=== PATIENT | female | born 1980 | race Two or more races ===

== ENCOUNTER 2024-11-01 14:09 | Emergency (ER) | payer MEDICAID, SELFPAY ==
--- NOTE | 2024-11-01 14:41 | XR_ITS ---
Examination: Complete OB ultrasound, less than 14 weeks, transabdominal Date and time of exam: November 01, 2024 1503 hours INDICATIONS: No heart tones on at home on Doppler ultrasound assessment today Technique: Obstetrical ultrasound images less than 14 weeks performed via transabdominal imaging Findings: A normal shaped single intrauterine gestation is present in the uterus. pole 4.4 cm corresponds to 11 weeks 2 days gestational age Cardiac motion 164 BPM Ultrasonographic survey of visible and placental structures unremarkable. Amniotic fluid volume appears appropriate for this estimated gestational age. Right ovary 2.1 cm arterial flow Left ovary 2.6 cm arterial flow IMPRESSION: Viable intrauterine gestation 11 weeks 2 days.
--- NOTE | 2024-11-01 14:41 | PD.EDPREG ---
ED OB Contraction Preg RMI/HPI General Chief complaint: OB/Uterine Contractions Stated complaint: 11 weeks OB and no heart tones Time Seen by Provider: 11/01/24 14:43 Source: patient Arrival date/time: 11/01/24 14:09 43-year-old female with no known medical history presents to the emergency room with a chief complaint of vaginal spotting when she wipes, patient also states she has a Doppler at home and was unable to find any heart tones. Mode of arrival: ambulatory Limitations: no limitations Related Data Allergies Allergy/AdvReac Type Severity Reaction Status Date / Time No Known Allergies Allergy Verified 11/02/24 07:40 Review of Systems Review of Systems Systems Reviewed: All systems reviewed, normal except as documented Constitutional Constitutional: Reports system reviewed and no additional complaints, except as documented, Denies fatigue, Denies fever(s), Denies headache(s) and Denies weakness Eyes Eyes: Reports system reviewed and no additional complaints, except as documented, Denies blurry vision and Denies change in vision ENT Ears, Nose, Mouth, and Throat: Reports system reviewed and no additional complaints, except as documented, Denies otalgia, Denies headache(s), Denies nasal congestion, Denies throat swelling and Denies vertigo Cardiovascular Cardiovascular: Reports system reviewed and no additional complaints, except as documented, Denies chest pain, Denies dyspnea and Denies dyspnea on exertion Respiratory Respiratory: Reports system reviewed and no additional complaints, except as documented, Denies chest congestion, Denies cough, Denies dyspnea, Denies dyspnea on exertion and Denies wheezing Gastrointestinal Gastrointestinal: Reports system reviewed and no additional complaints, except as documented, Denies abdominal pain, Denies cramping, Denies nausea and Denies vomiting Genitourinary Genitourinary: Reports system reviewed and no additional complaints, except as documented, Reports abnormal vaginal bleeding and Reports pelvic pain Musculoskeletal Musculoskeletal: Reports system reviewed and no additional complaints, except as documented and Denies back pain Integumentary/Breasts Skin/Breast: Reports system reviewed and no additional complaints, except as documented and Denies wounds Neurologic Neurologic: Reports system reviewed and no additional complaints, except as documented, Denies confusion, Denies headache(s), Denies lack of coordination, Denies vertigo and Denies weakness Psychiatric Psychiatric: Reports system reviewed and no additional complaints, except as documented, Denies anxiety, Denies confusion, Denies depression, Denies paranoia, Denies suicidal ideation and Denies tactile hallucinations Endocrine Endocrine: Reports system reviewed and no additional complaints, except as documented and Denies fatigue Hematologic/Lymphatic Hematologic/Lymphatic: Reports system reviewed and no additional complaints, except as documented and Denies lymphadenopathy Allergic/Immunologic Allergic/Immunologic: Reports system reviewed and no additional complaints, except as documented, Denies throat swelling, Denies urticaria and Denies wheezing Past Medical History Past Medical History CARDIAC: Negative Congestive Heart Failure RESPIRATORY: Negative Chronic Obstructive Pulmonary Disease (COPD) GENITOURINARY: Negative Renal Disease ENDOCRINE: Negative Diabetes Mellitus Type 1 or Diabetes Mellitus Type 2 Social History SMOKING STATUS: Never smoker ED Exam General Limitations: Present no limitations General appearance: Present alert and in no apparent distress Head Head exam: Present atraumatic Eye Eye exam: Present normal appearance, PERRL and EOMI ENT ENT exam: Present normal exam, normal oropharynx and mucous membranes moist Neck Neck exam: Present normal inspection, full ROM and trachea midline Chest Chest inspection: Present normal inspection and symmetric chest wall rise Respiratory Respiratory exam: Present normal lung sounds bilaterally Cardiovascular Cardiovascular exam: Present regular rate, normal rhythm and normal heart sounds Abdominal Exam Abdominal exam: Present soft and normal bowel sounds; Absent distention, tenderness, guarding, rebound or rigidity Extremities Exam Extremities exam: Present normal inspection and full ROM Back Exam Back exam: Present normal inspection and full ROM Neurological Exam Neurological exam: Present alert, oriented X3 and CN II-XII intact Psychiatric Psychiatric exam: Present normal affect and normal mood Skin Skin exam: Present warm, dry, intact and normal color Course Quality Measures none Orders Category Date Time Status US OB <= 14 weeks fetus Stat Exams 11/01/24 14:41 Completed ABO/RH Type Stat Lab 11/01/24 14:58 Completed Beta HCG,Quantitative Stat Lab 11/01/24 14:58 Completed CBC Stat Lab 11/01/24 14:58 Completed CMP [Comprehensive Metabolic Panel] Stat Lab 11/01/24 14:58 Completed UA [Urinalysis] Stat Lab 11/01/24 15:30 Completed Vital Signs Vital signs: O2 saturations within normal limits OB/Uterine Contractions MDM Narrative MDM Narrative:: 43-year-old female with no known medical history presents to the emergency room with a chief complaint of vaginal spotting when she wipes, patient also states she has a Doppler at home and was unable to find any heart tones. Patient is hemodynamically stable and in no apparent distress. Blood pressure is within normal limits. Patient has a soft nontender abdomen patient denies vaginal bleeding, and states she only had 1 episode of vaginal spotting after she urinated and wiped. Ultrasound OB was completed and shows a viable at 11 weeks and 1 day. heart tones were at 153 bpm. hCG levels are at 142,426 Patient was discharged and educated to follow-up with [facility] and return to the emergency room for any evidence of worsening signs or symptoms Patient data External records reviewed:: [facility] previous records Clinical information provided by:: patient Social determinants that could affect healthcare access:: none Patient has the following chronic illnesses:: No chronic illness How is presenting disease/condition affected by chronic disease/condition?: no chronic disease Evaluation data The following diagnostics were reviewed and interpreted by me:: lab results and radiology exam(s) Lab and/or radiology exams considered but not ordered:: Labs and radiology exams considered and ordered Interpretation Summary: OB ultrasound-Findings: A normal shaped single intrauterine gestation is present in the uterus. CRL 4.3 cm corresponds to 11 weeks 1 day gestational age Cardiac motion 153 BPM Uterine body area of fibroid degeneration 3.7 cm Ultrasonographic survey of visible and placental structures unremarkable. Amniotic fluid volume appears appropriate for this estimated gestational age. Right ovary 2.3 cm arterial flow Left ovary 3.2 cm arterial flow Impression: Viable intrauterine gestation 11 weeks 1 day. Medications / Prescriptions Medications or Prescriptions considered but not ordered:: No medication given Medication administrations:: No medication given Consultations Consultation(s) initiated? (list below): No Diagnosis OB Contractions Differential Diagnosis: pre-eclampsia, eclampsia and other (Threatened /vaginal bleeding/ complications) Most likely diagnosis given after review of the tests above:: complications Admission Indicated Admission indicated?: not indicated Explain why admission is indicated or not indicated:: N/A Admission Request Was there a request for admission?: No Disposition Plan Disposition Plan: Discharge Discharge Attestation Discharge Attestation: The patient and all family members were given an opportunity to ask questions and understood the discharge instructions. Discharge instructions specifically effects, indications for sooner follow up or return to the emergency department, and the expected course of current diagnosis. Patient condition: Stable Discharge Plan Plan Patient Disposition: HOME (Self Care) Disposition Comment: Stable Problem List Clinical Impression: complication Patient/Caregiver Discharge Instructions Additional Instructions: David un seguimiento con oakes obstetra/ginec?logo en las pr?ximas 24 a 48 horas. Se complet? beatriz ecograf?a y hay tonos card?acos fetales. Tienes un embarazo viable de 11 semanas y 2 d?as. Ante cualquier evidencia de empeoramiento de los signos o s?ntomas, regrese a la adelaide de emergencias de inmediato. Print Language: Cambodian Stand Alone Forms: Wendi Award Info., Patient Portal Info Letter PA/LEAD NEURODIAGNOSTIC TECHNOLOGIST Supervising Physician PA/LEAD NEURODIAGNOST[employer] TECHNOLOGIST Supervising Physician: Dr Artis
[2024-11-01 15:11] LABS: Basophils % (Auto) 0 % (0-2.5); Eosinophils % (Auto) 0 % (0-10); Hematocrit 37.6 % (36.0-46.0); Immature Granulocytes % (Auto) 0 % (0-0); Immature Granulocytes Auto 0.03 Thou/mm3 (0.00-0.00); Lymphocytes # (Auto) 1.7 Thou/mm3 (1.0-4.8); Lymphocytes % (Auto) 22 % (10-50); Mean Corpuscular HGB Conc 34.6 g/dl (31.0-37.0); Mean Corpuscular Hemoglobin 29.1 pg (25.0-35.0); Mean Corpuscular Volume 84 fL (80-100); Monocytes # (Auto) 0.6 Thou/mm3 (0.0-0.8); Monocytes % (Auto) 8 % (0-12); Neutrophils # (Auto) 5.5 Thou/mm3 (1.8-7.7); Neutrophils % (Auto) 70 % (37-80); Nucleated Red Blood Cell % 0 /100 WBC (0); Platelet Count 203 Thou/mm3 (140-440); RDW Standard Deviation 41.6 fL (36.4-46.3); Red Blood Count 4.47 Miln/mm3 (4.00-5.20)
[2024-11-01 15:37] LABS: Alanine Aminotransferase 14 U/L (10-49); Albumin, Serum 3.8 gm/dL (3.5-5.0); Albumin/Globulin Ratio 1.3 (1.2-2.2); Alkaline Phosphatase 63 U/L (46-116); Anion Gap 5 (7-16); BUN/Creatinine Ratio 14 Ratio (12-20); Bilirubin,Total 0.3 mg/dL (0.3-1.2); Blood Urea Nitrogen 7 mg/dL (9-23); Calcium 9.3 mg/dL (8.3-10.6); Calcium (Corrected) 9.5 mg/dL (8.5-10.1); Carbon Dioxide 26.9 mMol/L (20.0-31.0); Chloride 107 mMol/L (98-107); Creatinine (Component) 0.5 mg/dL (0.6-1.3); Globulin 2.9 gm/dL (2.3-3.5); Glucose 86 mg/dL (74-106); Osmolality,Calculated 274 (275-295); Potassium 3.9 mMol/L (3.4-5.1); Sodium 139 mMol/L (136-145); Total Protein 6.7 gm/dL (5.7-8.2); eGFR > 60 See Note
[2024-11-01 15:41] LABS: Collection Type, Urine Clean Catch
[2024-11-01 15:49] LABS: Aspartate Amino Transferase 12 U/L (0-34)
[2024-11-01 16:09] LABS: Bilirubin,Urine Negative (Negative); Blood,Urine Trace (Negative); Clarity,Urine Clear (Clear/Hazy); Color,Urine Lt-Yellow (Lt Yel-Yel); Glucose, Urine Negative (Negative); Ketones,Urine Negative (Negative); Leukocyte Esterase,Urine Negative (Negative); Nitrite,Urine Positive (Negative); PH,Urine 6.5 (5.0-7.0); Protein,Urine Negative (Neg - Trace); RBC,Urine 3 /hpf (0-3); Specific Gravity,Urine 1.017 (1.001-1.035); Squamous Epithelial Cell,Urine 1 /hpf (0-5); Urobilinogen,Urine Negative mg/dL (0.0-1.0); WBC,Urine 2 /hpf (0-5)
[2024-11-01 16:54] LABS: Beta HCG,Quantitative 136342 mIU/mL (<5.0)
== END 2024-11-01 17:10 | disposition home or self-care (01) ==
PROVIDERS: Nurse Practitioner Family; Emergency Provider Emergency Medicine
DX: O26.91 Pregnancy related conditions, unspecified, first trimester (principal); Z3A.11 11 weeks gestation of pregnancy
CPT/HCPCS: 36415; 76801; 80053; 81001; 84702; 85025; 86900; 86901; 99284

== ENCOUNTER 2024-11-02 07:37 | Emergency (ER) | payer MEDICAID, SELFPAY ==
[2024-11-02 07:48] VITALS: BP 122/81; PULSE 62; RESP 16; TEMP 36.7; O2SAT 100; BMI 27.4
--- NOTE | 2024-11-02 08:05 | PD.EDRME ---
Rapid Medical Screening Exam E Arrival date/time: 11/02/24 07:37 This is a 43-year-old female that comes in with complaints of vaginal bleeding. Patient was just seen here couple days ago for the same reason. Patient is a 7 para 5. Patient previously had 1 miscarriage last year. Patient denies any past medical history. Patient denies any dysuria. Patient denies any abdominal pain. Patient is afraid that she is miscarrying. I have greeted and performed a focused initial assessment of this patient. Initial appropriate labs ordered at this time. A comprehensive ED assessment and evaluation of the patient and analysis of all test and completion of medical decision making process will be conducted by additional ED provider. Chief Complaint: Vaginal Bleeding Time Seen by Provider: 11/02/24 07:41 Vital signs: Vital Signs Temperature 98.0 F 11/02/24 07:48 Pulse Rate 62 11/02/24 07:48 Respiratory Rate 16 11/02/24 07:48 Blood Pressure 122/81 11/02/24 07:48 Pulse Oximetry (%) 100 11/02/24 07:48 Oxygen Delivery Method Room Air 11/02/24 07:48
--- NOTE | 2024-11-02 08:06 | XR_ITS ---
Examination: Complete OB ultrasound, less than 14 weeks, transabdominal Date and time of exam: November 02, 2024 0918 hrs. Indications: Vaginal bleeding beginning today Technique: Obstetrical ultrasound images less than 14 weeks performed via transabdominal imaging Findings: A normal shaped single intrauterine gestation is present in the uterus. CRL 4.3 cm corresponds to 11 weeks 1 day gestational age Cardiac motion 153 BPM Uterine body area of fibroid degeneration 3.7 cm Ultrasonographic survey of visible and placental structures unremarkable. Amniotic fluid volume appears appropriate for this estimated gestational age. Right ovary 2.3 cm arterial flow Left ovary 3.2 cm arterial flow Impression: Viable intrauterine gestation 11 weeks 1 day.
[2024-11-02 08:59] LABS: Collection Type, Urine Voided
[2024-11-02 08:59] LABS: Alanine Aminotransferase 11 U/L (10-49); Albumin, Serum 4.1 gm/dL (3.5-5.0); Albumin/Globulin Ratio 1.4 (1.2-2.2); Alkaline Phosphatase 63 U/L (46-116); Anion Gap 7 (7-16); Aspartate Amino Transferase < 10 U/L (0-34); BUN/Creatinine Ratio 14 Ratio (12-20); Bilirubin,Total 0.5 mg/dL (0.3-1.2); Blood Urea Nitrogen 7 mg/dL (9-23); Calcium 9.5 mg/dL (8.3-10.6); Calcium (Corrected) 9.5 mg/dL (8.5-10.1); Carbon Dioxide 27.4 mMol/L (20.0-31.0); Chloride 106 mMol/L (98-107); Creatinine (Component) 0.5 mg/dL (0.6-1.3); Estimated Creatinine Clearance 118.3 mL/min (>60); Glucose 94 mg/dL (74-106); Osmolality,Calculated 277 (275-295); Potassium 3.8 mMol/L (3.4-5.1); Sodium 140 mMol/L (136-145); Total Protein 7.1 gm/dL (5.7-8.2); eGFR > 60 See Note
[2024-11-02 09:02] LABS: Basophils % (Auto) 0 % (0-2.5); Eosinophils % (Auto) 0 % (0-10); Hematocrit 39.8 % (36.0-46.0); Hemoglobin 13.6 g/dL (12.0-16.0); Immature Granulocytes % (Auto) 0 % (0-0); Immature Granulocytes Auto 0.03 Thou/mm3 (0.00-0.00); Lymphocytes # (Auto) 1.6 Thou/mm3 (1.0-4.8); Lymphocytes % (Auto) 23 % (10-50); Mean Corpuscular HGB Conc 34.2 g/dl (31.0-37.0); Mean Corpuscular Hemoglobin 29.1 pg (25.0-35.0); Mean Corpuscular Volume 85 fL (80-100); Monocytes # (Auto) 0.5 Thou/mm3 (0.0-0.8); Monocytes % (Auto) 8 % (0-12); Neutrophils # (Auto) 4.6 Thou/mm3 (1.8-7.7); Neutrophils % (Auto) 68 % (37-80); Nucleated Red Blood Cell % 0 /100 WBC (0); Platelet Count 225 Thou/mm3 (140-440); RDW Standard Deviation 42.1 fL (36.4-46.3); Red Blood Count 4.68 Miln/mm3 (4.00-5.20); White Blood Count 6.7 Thou/mm3 (3.6-11.0)
[2024-11-02 09:47] LABS: Beta HCG,Quantitative 142460 mIU/mL (<5.0)
--- NOTE | 2024-11-02 10:21 | PRELIM_ITS ---
Obstetric ultrasound (transabdominal and transvaginal). November 02, 2024 0918 hours Clinical history: Vaginal bleeding. Technique: Real-time ultrasound was performed using Duplex scanning including arterial inflow, venous outflow, color and spectral Doppler analysis of both ovaries. Comparison: None. Findings: There is an intrauterine gestation with a single live fetus of mean gestational age 11 weeks and 1 day (CRL= 4.2 cm). cardiac activity is present at heart rate of 153 beats per minute. Estimated due date by ultrasound is 05/23/2025. Cervical length measures 6.6 cm The uterus measures 15.7 x 6.6 x 8.8 cm. There is a 3.7 x 2.8 x 3.2 cm hypoechoic structure in the anterior myometrium, which may represent a fibroid. Nabothian cyst is seen in the cervix. The right ovary measures 1.4 x 2.2 x 2.3 cm and is unremarkable. The left ovary measures 3.2 x 1.5 x 2.1 cm and is unremarkable. There is no free fluid in the pelvis. Impression: Intrauterine gestation with a single live fetus of mean gestational age 11 weeks and 1 day. Uterine fibroid as described. Recommend clinical correlation. Other findings as described above. Report Electronically Signed By: Dhara Bermudez 11/02/2024 10:21:18 AM [EST]
[2024-11-02 11:04] LABS: Bacteria,Urine Rare; Bilirubin,Urine Negative (Negative); Blood,Urine 1+ (Negative); Clarity,Urine Clear (Clear/Hazy); Color,Urine Lt-Yellow (Lt Yel-Yel); Culture Indicated,Urine Not Indicated; Glucose, Urine Negative (Negative); Ketones,Urine Negative (Negative); Leukocyte Esterase,Urine Negative (Negative); Nitrite,Urine Negative (Negative); PH,Urine 6.5 (5.0-7.0); Protein,Urine Negative (Neg - Trace); RBC,Urine 3 /hpf (0-3); Squamous Epithelial Cell,Urine 5 /hpf (0-5); Urobilinogen,Urine Negative mg/dL (0.0-1.0); WBC,Urine 1 /hpf (0-5)
--- NOTE | 2024-11-02 12:59 | PD.EDVAGBL ---
ED OB Contraction Preg RMI/HPI General Chief complaint: Vaginal Bleeding Stated complaint: 11 WKS VAGINAL BLEEDING Time Seen by Provider: 11/02/24 07:41 Arrival date/time: 11/02/24 07:37 This is a 43-year-old female that comes in with complaints of vaginal bleeding. Patient was just seen here couple days ago for the same reason. Patient is a 7 para 5. Patient previously had 1 miscarriage last year. Patient denies any past medical history. Patient denies any dysuria. Patient denies any abdominal pain. Patient is afraid that she is miscarrying. RME / HPI RME / HPI Narrative: 11/02/24 07:37 This is a 43-year-old female that comes in with complaints of vaginal bleeding. Patient was just seen here couple days ago for the same reason. Patient is a 7 para 5. Patient previously had 1 miscarriage last year. Patient denies any past medical history. Patient denies any dysuria. Patient denies any abdominal pain. Patient is afraid that she is miscarrying. I have greeted and performed a focused initial assessment of this patient. Initial appropriate labs ordered at this time. A comprehensive ED assessment and evaluation of the patient and analysis of all test and completion of medical decision making process will be conducted by additional ED provider. Related Data Allergies Allergy/AdvReac Type Severity Reaction Status Date / Time No Known Allergies Allergy Verified 11/02/24 07:40 Review of Systems Review of Systems Systems Reviewed: All systems reviewed, normal except as documented Past Medical History Past Medical History CARDIAC: Negative Congestive Heart Failure RESPIRATORY: Negative Chronic Obstructive Pulmonary Disease (COPD) GENITOURINARY: Negative Renal Disease ENDOCRINE: Negative Diabetes Mellitus Type 1 or Diabetes Mellitus Type 2 Social History SMOKING STATUS: Never smoker ED Exam General General appearance: Present alert and in no apparent distress Head Head exam: Present atraumatic Eye Eye exam: Present normal appearance, PERRL and EOMI ENT ENT exam: Present normal exam, normal oropharynx and mucous membranes moist Neck Neck exam: Present normal inspection, full ROM and trachea midline Chest Chest inspection: Present normal inspection and symmetric chest wall rise Respiratory Respiratory exam: Present normal lung sounds bilaterally Cardiovascular Cardiovascular exam: Present regular rate, normal rhythm and normal heart sounds Abdominal Exam Abdominal exam: Present soft Extremities Exam Extremities exam: Present normal inspection and full ROM Back Exam Back exam: Present normal inspection and full ROM Neurological Exam Neurological exam: Present alert, oriented X3 and CN II-XII intact Psychiatric Psychiatric exam: Present normal affect and normal mood Skin Skin exam: Present warm, dry, intact and normal color Course Quality Measures none Orders Category Date Time Status US OB <= 14 weeks fetus Stat Exams 11/02/24 08:06 Completed Beta HCG,Quantitative Stat Lab 11/02/24 08:15 Completed CBC Stat Lab 11/02/24 08:15 Completed Comprehensive Metabolic Panel Stat Lab 11/02/24 08:15 Completed Urinalysis, C/S if Indicated Stat Lab 11/02/24 08:45 Completed Vital Signs Vital signs: Vital Signs Temperature 98.0 F 11/02/24 07:48 Pulse Rate 62 11/02/24 07:48 Respiratory Rate 16 11/02/24 07:48 Blood Pressure 122/81 11/02/24 07:48 Pulse Oximetry (%) 100 11/02/24 07:48 Oxygen Delivery Method Room Air 11/02/24 07:48 Vaginal Bleeding MDM Narrative MDM Narrative: OB US Findings: A normal shaped single intrauterine gestation is present in the uterus. CRL 4.3 cm corresponds to 11 weeks 1 day gestational age Cardiac motion 153 BPM Uterine body area of fibroid degeneration 3.7 cm Ultrasonographic survey of visible and placental structures unremarkable. Amniotic fluid volume appears appropriate for this estimated gestational age. Right ovary 2.3 cm arterial flow Left ovary 3.2 cm arterial flow Impression: Viable intrauterine gestation 11 weeks 1 day. I went over results with patient. Yesterday's hCG showed a [id number] and today was [id number]. I explained to patient that I do not know why she is bleeding and she needs to follow-up with her primary provider in 1 to 2 days. Patient has a viable intrauterine of 11 weeks and 1 day per her read. Patient told to avoid sex or any heavy lifting. Patient told to rest follow-up with primary provider in 1 to 2 days. Patient data External records reviewed:: [facility] previous records Clinical information provided by:: patient Social determinants that could affect healthcare access:: none Patient has the following chronic illnesses:: none How is presenting disease/condition affected by chronic disease/condition?: no chronic disease Evaluation data The following diagnostics were reviewed and interpreted by me:: lab results and radiology exam(s) Lab and/or radiology exams considered but not ordered:: none Interpretation Summary: see note Medications / Prescriptions Medications or Prescriptions considered but not ordered:: none Medication administrations:: see note Consultations Consultation(s) initiated? (list below): No Diagnosis Vaginal Bleeding Differential Diagnosis: threatened , dysfunctional uterine bleeding, ectopic without intrauterine and vaginal bleeding Most likely diagnosis given after review of the tests above:: threatened miscarriage Admission Indicated Admission indicated?: not indicated Admission Request Was there a request for admission?: No Disposition Plan Disposition Plan: Discharge Discharge Attestation Discharge Attestation: The patient and all family members were given an opportunity to ask questions and understood the discharge instructions. Discharge instructions specifically effects, indications for sooner follow up or return to the emergency department, and the expected course of current diagnosis. Patient condition: Stable Discharge Plan Plan Patient Disposition: HOME (Self Care) Patient condition on transfer: Stable Prescriptions/Referrals Referrals: Crow Vasquez MD [Primary Care Provider] - In 1 week Problem List Clinical Impression: 11 weeks gestation of , Vaginal bleeding Patient/Caregiver Discharge Instructions Discharge Activity: activity as tolerated Education Materials: Understanding Uterine Bleeding, First Trimester Additional Instructions: Follow-up with primary provider in 1 to 2 days. Come back to the emergency room if symptoms change or worsen. Print Language: Singaporean Stand Alone Forms: Wendi Award Info., Patient Portal Info Letter LEANA/ESTELA Supervising Physician LEANA/ESTELA Supervising Physician: analilia
--- NOTE | 2024-11-02 13:53 | PC.NURSE ---
no answer x 1 at 1350. checked lobby and outside. notified provider.
--- NOTE | 2024-11-02 14:46 | PC.NURSE ---
no answer x 3 at 1430 and 1445. checked outside and lobby
== END 2024-11-02 14:48 | disposition home or self-care (01) ==
PROVIDERS: Nurse Practitioner Family; Emergency Provider Emergency Medicine; PCP Obstetrics & Gynecology
DX: O20.9 Hemorrhage in early pregnancy, unspecified (principal); O34.11 Maternal care for benign tumor of corpus uteri, first trimester; D25.9 Leiomyoma of uterus, unspecified; Z3A.11 11 weeks gestation of pregnancy
CPT/HCPCS: 36415; 76801; 80053; 81001; 84702; 85025; 99284

== ENCOUNTER → 2025-02-13 | Outpatient (CLI) | payer MEDICAID, SELFPAY ==
--- NOTE | 2025-02-13 13:30 | XR_ITS ---
Examination: Retroperitoneal ultrasound, complete Technique: Multiple high resolution grayscale images of the retroperitoneum obtained, including kidneys and bladder. Exam date and time:February 13, 2025 1413 hours INDICATIONS: Right flank pain beginning 2 weeks ago FINDINGS: Right kidney 11.0 cm cortex 1.6 cm Mild hydronephrosis Left kidney 11.0 cm cortex 1.8 cm Mild bilateral renal parenchymal scar formation No bladder mass or bladder calculi, bladder prevoid volume 262 cc postvoid volume 0 cc IMPRESSION: Mild right hydronephrosis
== END | disposition home or self-care (01) ==
LOC: CDIM 13:40
PROVIDERS: PCP Obstetrics & Gynecology; Referring Provider Obstetrics & Gynecology; Visit Provider Obstetrics & Gynecology
DX: N13.30 Unspecified hydronephrosis (principal)
CPT/HCPCS: 76770

== ENCOUNTER 2025-04-07 08:55 | Outpatient (AMB) | payer MEDICAID, SELFPAY ==
[2025-04-07 09:10] VITALS: BP 113/76; PULSE 71; RESP 17; TEMP 36.5; O2SAT 97; BMI 33.5
--- NOTE | 2025-04-07 09:10 | AMB.OBINITIA ---
Vital Signs 04/07/25 09:10 Height 1.5 m Height Method Stated Weight 75.41 kg Weight Measurement Method Standing Scale BMI 33.5 BP 113/76 Blood Pressure Source Automatic Cuff Blood Pressure Location Right Upper Arm Position Sitting Respiration 17 Pulse 71 Pulse Source Monitor Temp 97.7 F Temp Source Temporal Artery Scan Pulse Oximetry (%) 97 Oxygen Delivery Method Room Air Allergies/Home Meds Allergies & Medications Allergies No Known Allergies Allergy (Verified 04/07/25 09:13) Medication Reconciliation Unobtainable 04/07/25 [History Confirmed 04/07/25] Intake Visit Data Collection New Patient or Established: Established Patient (seen at [facility] within 3 years) 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 1. Little interest or pleasure in doing things: not at all 2. Feeling down, depressed, or hopeless: not at all Total score: 0 PHQ-9 3. Trouble falling or staying asleep, or sleeping too much: Not at all 4. Feeling tired or having little energy: Not at all 5. Poor appetite or overeating: Not at all 6. Feeling bad about yourself - or that you are a failure or have let yourself or your family down: Not at all 7. Trouble concentrating on things, such as reading the newspaper or watching television: Not at all 8. Moving or speaking so slowly that other people could have noticed? - Or the opposite - being so fidgety or restless that you have been moving around a lot more than usual: not at all 9. Thoughts that you would be better off or of hurting yourself in some way: Not at all Total score: 0 If you checked off any problems, how difficult have these problems made it for you to do your work, take care of things at home, or get along with other people?: not difficult at all Source: Developed by Drs. Troy Rivas, Mitzi Aguilera, Woo [place] and colleagues, with an educational ayesha from [employer]. Social History Living Situation History Marital Status: Lives With: Family Housing: House Tobacco History Smoking Status: Never smoker Second Hand Smoke Exposure: No Alcohol History Alcohol Intake: Never Domestic Abuse History Do You Feel Safe at Home: Yes History of Present Illness HPI Narrative 44-year-old 6 7 para 6 for OBI. Patient is a transfer from Dr. Holt's office at 33 weeks. Her last period July 19, 2024. This gives an EDC of May 23, 2025. Patient had a 9-week ultrasound that also confirm dates. She had an ultrasound March 17 that confirmed dates and put her at the 47 percentile. Denies social habits. Denies surgery. Denies chronic illness. Patient reports movement and denies leaking fluid. Patient is O+, antibody screen negative, RPR nonreactive, rubella immune, hepatitis B negative, HIV negative, hep C negative, patient is hep A positive but her IgM is negative. She had a negative AFP and negative NIPT. Carrier screens negative. Patient had an abnormal 1 hour GTT but her 3-hour normal. A1c was 5.0 REGULATORY INTERN: Past Medical History Past Medical History: No Hx Renal Disease, No Hx Diabetes Mellitus Type 1 and No Hx Diabetes Mellitus Type 2 OB Initial Visit OB Flowsheet OB Flowsheet Initial Weight: Not Recorded Date <del>?</del> EGA Weight BP Alb Glu CTX Pres Fundal ht FHR Mov Dilation Station Effacement Hx Notes Visit Note 04/07/25 <del>?</del> 33w 3d 75.41 kg 113/76 absent cephalic 33 147 active 44-year-old 7 para [address] Holt's office with records. Patient had a 9-week ultrasound. She has had no problems she reports with the . Denies social habits. Denies surgeries. Denies any existence of chronic illness. Reports good movement. Denies any cramps bleeding or leaking fluid Reviewed OB records with patient. GBS next visit. I called for her ultrasound records from [facility]. Patient has a follow-up in 6 weeks. Discussed labor precautions. Return in 2 weeks OB check Menstrual History Menstrual reliability: definite Flow: normal Menstrual regularity: regular Monthly: Yes OB History : 7 Para: 5 Hx Total # of Abortions (Spontaneous & Elective): 1 # of Living Children: 5 Delivery History 1st : Child's name: DEBORAH SEVILLA date: 06/27/04 sex: female Gestational age at delivery (weeks): 40 Delivery type: vaginal weight (lbs): 2721.554 g History of depression before or after : No 2nd : Child's name: KATH SEVILLA date: 03/25/06 sex: male Gestational age at delivery (weeks): 40 Delivery type: vaginal weight (lbs): 2267.962 g History of depression before or after : No 3rd : Child's name: JORJE PIEDRA date: 05/16/09 sex: male Gestational age at delivery (weeks): 40 Delivery type: vaginal weight (lbs): 3175.147 g History of depression before or after : No 4th : Child's name: JANET PIEDRA date: 04/14/12 sex: female Gestational age at delivery (weeks): 40 Delivery type: vaginal weight (lbs): 2721.554 g History of depression before or after : No 5th : Child's name: SEGUNDO SEVILLA date: 11/11/16 sex: female Gestational age at delivery (weeks): 40 Delivery type: vaginal weight (lbs): 2721.554 g History of depression before or after : No Infection History & Risk Evaluation History of STDs: none HIV risk evaluation: low risk Hepatitis B risk evaluation: low risk Patient or partner has history of Genital Herpes: No Varicella/chicken pox status: unknown Genetic Screening & History Genetic Screening/Teratology Counseling - Includes patient, baby's father, or anyone in either family with: 1. Patient's age 35 years or older as of estimated date of delivery: Yes 2. Thalassemia (Syrian, Chadian, Mediterranean, or Background); MCV less than 80: No 3. Neural Tube Defect (Meningomyelocele, Spina Bifida, or Anencephaly): No 4. Congenital Heart Defect: No 5. Down Syndrome: No 6. Aleksandar-Sachs (Ashkenazi Jehovah'S Witness, Cajun, [place]): No 7. Kaela Disease (Ashkenazi Jehovah'S Witness): No 8. Familial Dysautonomia (Ashkenazi Jehovah'S Witness): No 9. Sickle Cell Disease or Trait (): No 10. Hemophilia or other blood disorders: No 11. Muscular Dystrophy: No 12. Cystic Fibrosis: No 13. Jolene's Chorea: No 14. Mental Retardation/Autism: No 15. Other inherited genetic or chromosomal disorder: No 16. Maternal Metabolic Disorder (EG,TYPE 1 Diabetes, PKU): No 17. Patient or baby's father had a child with defects not listed above: No 18. Recurrent loss or a stillbirth: No 19. Medications (including supplements, vitamins, herbs or otc drugs)/illicit/recreational drugs/alcohol since last menstrual period: No 20. Any other: No Infection History 1. Live with someone with TB or exposed to TB: No 2. Rash or viral illness since last menstrual period: No 3. Hepatitis B,C: No Other (see comments) Source: [employer] Office Procedures OB Clinic LOC & Office Proc's Nursing/Assessment Patient Status: Established Patient OB Clinic Nursing Assessment: Medication Reconciliation, Update PMH in EMR and Vital Signs OB Clinic Coordination of Care: Complex Care and Chronic Disease 1-5, Consent,records obtained, informed consent, Education Simp Pt/Fam, 2-3 Insurance Autorizations needed, Lab and Imaging orders, Results/Orders obtained and Staff clarify orders Special Needs: Heart tones Established Patient Charge Established Patient Point Assignment: 155 Established Patient Point Charge: EP Level 4 (120-155) Assessment & Plan Diagnosis / Problem List (1) Encounter for supervision of high risk in third trimester, antepartum: Status: Acute (2) Advanced maternal age (AMA) in : Status: Acute (3) Grand multiparity with current : Status: Acute Plan review records. call for MFM report. GBS NV, discuss OTL precaution, fkc bid, hydrate. rtc 2 week obc Additional Plan Follow Up: 2 Weeks (obc)
== END 2025-04-07 09:42 | disposition home or self-care (01) ==
LOC: HODSOBC 08:55
PROVIDERS: Supervising Provider Advanced Practice Midwife; Visit Provider Advanced Practice Midwife
DX: O09.523 Supervision of elderly multigravida, third trimester (principal); O09.43 Supervision of pregnancy with grand multiparity, third trimester; Z3A.33 33 weeks gestation of pregnancy
CPT/HCPCS: 99214; G0463

== ENCOUNTER 2025-04-21 08:36 | Outpatient (AMB) | payer MEDICAID, SELFPAY ==
--- NOTE | 2025-04-21 08:39 | OBCLNT_ITS ---
Vital Signs 04/21/25 08:40 Height 1.5 m Height Method Stated Weight 76.657 kg Weight Measurement Method Standing Scale BMI 34.0 BP 117/76 Blood Pressure Source Automatic Cuff Blood Pressure Location Right Upper Arm Position Sitting Respiration 17 Pulse 83 Pulse Source Monitor Temp 97.5 F Temp Source Temporal Artery Scan Pulse Oximetry (%) 95 Oxygen Delivery Method Room Air Allergies/Home Meds Allergies & Medications Allergies No Known Allergies Allergy (Verified 04/21/25 08:40) Medication Reconciliation vits no.126-ferrous fum 28 mg iron-folic acid 800 mcg tablet (Classic ) 0.126 - 28 tab PO DAILY 30 days #60 tabs 04/07/25 [Rx Confirmed 04/21/25] amoxicillin 500 mg capsule 500 mg PO BID #14 caps 04/21/25 [Rx] Intake Visit Data Collection New Patient or Established: Established Patient (seen at [facility] within 3 years) Reason for Visit:: OBC 35W3D Seen by Clinical Staff ONLY (RN/MA): No Microsoft Windows 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 1. Little interest or pleasure in doing things: not at all 2. Feeling down, depressed, or hopeless: not at all Total score: 0 PHQ-9 3. Trouble falling or staying asleep, or sleeping too much: Not at all 4. Feeling tired or having little energy: Not at all 5. Poor appetite or overeating: Not at all 6. Feeling bad about yourself - or that you are a failure or have let yourself or your family down: Not at all 7. Trouble concentrating on things, such as reading the newspaper or watching television: Not at all 8. Moving or speaking so slowly that other people could have noticed? - Or the opposite - being so fidgety or restless that you have been moving around a lot more than usual: not at all 9. Thoughts that you would be better off or of hurting yourself in some way: Not at all Total score: 0 If you checked off any problems, how difficult have these problems made it for you to do your work, take care of things at home, or get along with other people?: not difficult at all Source: Developed by Drs. Troy Rivas, Mitzi Aguilera, Woo [place] and colleagues, with an educational ayesha from [employer]. 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 Holt's office with records. Patient had a 9-week ultrasound. She has had no problems she reports with the . Denies social habits. Denies surgeries. Denies any existence of chronic illness. Reports good movement. Denies any cramps bleeding or leaking fluid Reviewed OB records with patient. GBS next visit. I called for her ultrasound records from [facility]. Patient has a follow-up in 6 weeks. Discussed labor precautions. Return in 2 weeks OB check 04/21/25 -?-?-?-?-?-?-?-?-?-?-?-?- 35w 3d 76.657 kg 117/76 absent cephalic 35 145 active increased pressure, f etus active, no leaking or bleeding. mfm 04/29 increased pressure, fetus ac tive, no leaking or bleeding. mfm 04/29. UTI. sore throat x 4 days GBS today, tamara nue fkc bid. keep mfm appt 04/29. discuss labor precauution and danger s/s. rtc 1 week GBS today, continue fkc bid. keep mfm appt 04/29. discuss labor precauution and danger s/s. rtc 1 week. Amoxicillin 500 bid x7 to [place] [facility] GERMÁN Calculator Estimated Delivery Date Method Current WG Current Estimate 05/23/25 LMP (Certain) 35w 3d Other Estimates 05/24/25 Ultrasound #1 35w 2d 05/23/25 Ultrasound #2 35w 3d Notes Visit Date: 04/07/25 Last Updated by: María Sanders, ENRRIQUE 43 yo IUP 33 wk. LMP 08/16/25. EDC 05/24/25. 1st sono: 10/25/24: 9w6; EDC 05/24/25. O+,abs-, rpr;;nr, rub imm, hbsag-, hiv-, GC/CT-, UT-,UA-, hbsab-, hiv-, HC-, REID+/IGM-. 1 hr gtt: 154. 3 hr gtt: normal. A1: 5.0, NIPT/AFP and carrier screen- sono 03/17: efw: 47% Office Procedures OB Clinic LOC & Office Proc's Nursing/Assessment Patient Status: Established Patient OB Clinic Nursing Assessment: Medication Reconciliation, Update PMH in EMR and Vital Signs OB Clinic Coordination of Care: Complex Care and Chronic Disease 1-5, Consent,records obtained, informed consent, Education Simp Pt/Fam, Lab and Imaging orders and Staff clarify orders Special Needs: Heart tones Established Patient Charge Established Patient Point Assignment: 130 Established Patient Point Charge: EP Level 4 (120-155) Assessment & Plan Diagnosis / Problem List (1) Grand multiparity with current : Status: Acute (2) Advanced maternal age (AMA) in : Status: Acute Plan discuss labor precaution, GBS today, fkc BID, discuss danger s/s and ER precaution. rtc 1 week obc Additional Plan Follow Up: 1 Week (obc)
[2025-04-21 08:40] VITALS: BP 117/76; PULSE 83; RESP 17; TEMP 36.4; O2SAT 95; BMI 34.0
== END 2025-04-21 09:18 | disposition home or self-care (01) ==
LOC: HODSOBC 08:36
PROVIDERS: Supervising Provider Advanced Practice Midwife; Visit Provider Advanced Practice Midwife
DX: O09.893 Supervision of other high risk pregnancies, third trimester (principal); O09.43 Supervision of pregnancy with grand multiparity, third trimester; O09.523 Supervision of elderly multigravida, third trimester; O23.43 Unspecified infection of urinary tract in pregnancy, third trimester; Z36.85 Encounter for antenatal screening for Streptococcus B; Z3A.35 35 weeks gestation of pregnancy
CPT/HCPCS: 99214; G0463

== ENCOUNTER 2025-04-28 10:09 | Outpatient (AMB) | payer MEDICAID, SELFPAY ==
[2025-04-28 10:38] VITALS: BP 114/74; PULSE 73; RESP 17; TEMP 36.3; O2SAT 97; BMI 33.8
--- NOTE | 2025-04-28 10:38 | OBCLNT_ITS ---
Vital Signs 04/28/25 10:38 Height 1.5 m Height Method Measured Weight 76.204 kg Weight Measurement Method Standing Scale BMI 33.8 BP 114/74 Blood Pressure Source Automatic Cuff Blood Pressure Location Right Upper Arm Position Sitting Respiration 17 Pulse 73 Pulse Source Monitor Temp 97.4 F Temp Source Temporal Artery Scan Pulse Oximetry (%) 97 Oxygen Delivery Method Room Air Allergies/Home Meds Allergies & Medications Allergies No Known Allergies Allergy (Verified 04/28/25 10:39) Medication Reconciliation vits no.126-ferrous fum 28 mg iron-folic acid 800 mcg tablet (Classic ) 0.126 - 28 tab PO DAILY 30 days #60 tabs 04/07/25 [Rx Confirmed 04/28/25] amoxicillin 500 mg capsule 500 mg PO BID #14 caps 04/21/25 [Rx Confirmed 04/28/25] Intake Visit Data Collection New Patient or Established: Established Patient (seen at [facility] within 3 years) Reason for Visit:: OBC Consent obtained for Telemed Visit: No Seen by Clinical Staff ONLY (RN/MA): No Infantry Unit Leader Required: No Do You Feel Safe at Home: Yes Authorities Contacted: N/A PCP or OBGYN visit in last 3 months: Yes Date of Last PCP or OBGYN visit: 04/21/25 Hx Now: Yes Are you currently on any form of Control: No Pain Present Currently: Yes Pain scale:: 6 Smoking Status Smoking Status: Never smoker Questionnaires Covid-19 Vaccine Questionnaire Has patient been vacinated for Covid-19 Have you been vacinated for Covid-19: No PHQ-9 PHQ-2 Over the last 2 weeks, how often have you been bothered by any of the following problems? 1. Little interest or pleasure in doing things: not at all PHQ-9 3. Trouble falling or staying asleep, or sleeping too much: Not at all 4. Feeling tired or having little energy: Not at all 5. Poor appetite or overeating: Not at all 6. Feeling bad about yourself - or that you are a failure or have let yourself or your family down: Not at all 7. Trouble concentrating on things, such as reading the newspaper or watching television: Not at all 8. Moving or speaking so slowly that other people could have noticed? - Or the opposite - being so fidgety or restless that you have been moving around a lot more than usual: not at all 9. Thoughts that you would be better off or of hurting yourself in some way: Not at all If you checked off any problems, how difficult have these problems made it for you to do your work, take care of things at home, or get along with other people?: not difficult at all Source: Developed by Drs. Troy Rivas, Mitzi Aguilera, Woo [place] and colleagues, with an educational ayesha from [employer]. 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 Holt's office with records. Patient had a 9-week ultrasound. She has had no problems she reports with the . Denies social habits. Denies surgeries. Denies any existence of chronic illness. Reports good movement. Denies any cramps bleeding or leaking fluid Reviewed OB records with patient. GBS next visit. I called for her ultrasound records from [place] [facility]. Patient has a follow-up in 6 weeks. Discussed labor precautions. Return in 2 weeks OB check 04/21/25 -?-?-?-?-?-?-?-?-?-?-?-?- 35w 3d 76.657 kg 117/76 absent cephalic 35 145 active increased pressure, fetus active, no leaking or bleeding. mfm 8 increased pressure, fetus ac tive, no leaking or bleeding. mfm 8/. UTI. sore throat x 4 days GBS today, tamara nue fkc bid. keep mfm appt 04/29. discuss labor precauution and danger s/s. rtc 1 week GBS today, continue fkc bid. keep mfm appt 04/29. discuss labor precauution and danger s/s. rtc 1 week. Amoxicillin 500 bid x7 to [facility] 04/28/25 -?-?-?-?-?-?-?-?-?-?-?-?- 36w 3d 76.204 kg 114/74 absent cephalic 36 145 active Increased pressure. No OB complaints. Leaking no leaking fluid. Denies bleeding. Denies contract ions. Reports good movement. Patient has MFM appointment on the Keep MFM appointment. Discussed labor precautions. Discussed kick counts twice a day. And ER precautions. Return in a week for recheck. [facility] GERMÁN Calculator Estimated Delivery Date Method Current WG Current Estimate 05/23/25 LMP (Certain) 36w 3d Other Estimates 05/24/25 Ultrasound #1 36w 2d 05/23/25 Ultrasound #2 36w 3d Notes Visit Date: 04/28/25 Last Updated by: María Sanders CNM GBS- Visit Date: 04/07/25 Last Updated by: María Sanders CNM 43 yo IUP 33 wk. LMP 08/16/25. EDC 05/24/25. 1st sono: 10/25/24: 9w6; EDC 05/24/25. O+,abs-, rpr;;nr, rub imm, hbsag-, hiv-, GC/CT-, UT-,UA-, hbsab-, hiv-, HC-, REID+/IGM-. 1 hr gtt: 154. 3 hr gtt: normal. A1: 5.0, NIPT/AFP and carrier screen- sono 03/17: efw: 47% Office Procedures OB Clinic LOC & Office Proc's Nursing/Assessment Patient Status: Established Patient OB Clinic Nursing Assessment: Medication Reconciliation, Update PMH in EMR and Vital Signs OB Clinic Coordination of Care: Complex Care and Chronic Disease 1-5, Consent,records obtained, informed consent, Education Simp Pt/Fam and Results/Orders obtained Special Needs: Heart tones Established Patient Charge Established Patient Point Assignment: 110 Established Patient Point Charge: EP Level 3 (80-115) Assessment & Plan Diagnosis / Problem List (1) Grand multiparity with current : Status: Acute (2) Encounter for supervision of high risk in third trimester, antepartum: Status: Acute Plan Discussed labor precautions. Kick counts twice a day. Discussed ER precautions. To keep appointment with maternal- medicine on the . Return a week OB check Additional Plan Follow Up: 1 Week (obc)
== END 2025-04-28 11:24 | disposition home or self-care (01) ==
LOC: HODSOBC 10:09
PROVIDERS: Supervising Provider Advanced Practice Midwife; Visit Provider Advanced Practice Midwife
DX: O09.523 Supervision of elderly multigravida, third trimester (principal); O09.43 Supervision of pregnancy with grand multiparity, third trimester; Z3A.36 36 weeks gestation of pregnancy
CPT/HCPCS: 99213; G0463

== ENCOUNTER 2025-05-07 08:55 | Outpatient (AMB) | payer MEDICAID, SELFPAY ==
[2025-05-07 09:02] VITALS: BP 136/81; PULSE 73; RESP 16; TEMP 36.6; O2SAT 98; BMI 34.4
--- NOTE | 2025-05-07 09:02 | AMB.OBVISIT ---
Vital Signs 05/07/25 09:02 Height 1.5 m Height Method Stated Weight 77.621 kg Weight Measurement Method Standing Scale BMI 34.4 BP 136/81 H Blood Pressure Source Automatic Cuff Blood Pressure Location Left Upper Arm Position Sitting Respiration 16 Pulse 73 Pulse Source Monitor Temp 97.9 F Temp Source Oral Pulse Oximetry (%) 98 Oxygen Delivery Method Room Air Allergies/Home Meds Allergies & Medications Allergies No Known Allergies Allergy (Verified 05/07/25 09:03) Medication Reconciliation vits no.126-ferrous fum 28 mg iron-folic acid 800 mcg tablet (Classic ) 0.126 - 28 tab PO DAILY 30 days #60 tabs 04/07/25 [Rx Confirmed 04/28/25] Intake Visit Data Collection New Patient or Established: Established Patient (seen at [facility] within 3 years) Reason for Visit:: CARE Seen by Clinical Staff ONLY (RN/MA): No Quill Skinner Required: No Do You Feel Safe at Home: Yes Authorities Contacted: N/A PCP or OBGYN visit in last 3 months: Yes Hx Now: Yes Are you currently on any form of Control: No Pain Present Currently: No Pain Scale Used: Monsivais-Dumont/Numerical Pain scale:: 0 Smoking Status Smoking Status: Never smoker Questionnaires Covid-19 Vaccine Questionnaire Has patient been vacinated for Covid-19 Have you been vacinated for Covid-19: Yes PHQ-9 PHQ-2 Over the last 2 weeks, how often have you been bothered by any of the following problems? 1. Little interest or pleasure in doing things: not at all 2. Feeling down, depressed, or hopeless: not at all Total score: 0 PHQ-9 3. Trouble falling or staying asleep, or sleeping too much: Not at all 4. Feeling tired or having little energy: Not at all 5. Poor appetite or overeating: Not at all 6. Feeling bad about yourself - or that you are a failure or have let yourself or your family down: Not at all 7. Trouble concentrating on things, such as reading the newspaper or watching television: Not at all 8. Moving or speaking so slowly that other people could have noticed? - Or the opposite - being so fidgety or restless that you have been moving around a lot more than usual: not at all 9. Thoughts that you would be better off or of hurting yourself in some way: Not at all Total score: 0 Source: Developed by Drs. Troy Rivas, Mitzi Aguilera, Woo [place] and colleagues, with an educational ayesha from [email or web address]. 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 Holt's office with records. Patient had a 9-week ultrasound. She has had no problems she reports with the . Denies social habits. Denies surgeries. Denies any existence of chronic illness. Reports good movement. Denies any cramps bleeding or leaking fluid Reviewed OB records with patient. GBS next visit. I called for her ultrasound records from [facility]. Patient has a follow-up in 6 weeks. Discussed labor precautions. Return in 2 weeks OB check 04/21/25 <del>?</del> 35w 3d 76.657 kg 117/76 absent cephalic 35 145 active increased pressure, fetus active, no leaking or bleeding. mfm 8 increased pressure, fetus active, no leaking or bleeding. mfm 8. UTI. sore throat x 4 days GBS today, continue fkc bid. keep mfm appt 04/29. discuss labor precauution and danger s/s. rtc 1 week GBS today, continue fkc bid. keep mfm appt 04/29. discuss labor precauution and danger s/s. rtc 1 week. [place] [facility] [place] <del>?</del> 36w 3d 76.204 kg 114/74 absent cephalic 36 145 active Increased pressure. No OB complaints. Leaking no leaking fluid. Denies bleeding. Denies contractions. Reports good movement. Patient has MFM appointment on the 12th Keep MFM appointment. Discussed labor precautions. Discussed kick counts twice a day. And ER precautions. Return in a week for recheck. Hydrate 05/07/25 <del>?</del> 37w 5d 77.621 kg 136/81 occasional cephalic 37 145 active deneis PIH complaints, increase uc,No VB, No LOF, fetus active NST/comp OB and PIH w/u today, urine- protein. sched IOL 05/23/25. discuss labor precaution, fkc bid GERMÁN Calculator Estimated Delivery Date Method Current WG Current Estimate 05/23/25 LMP (Certain) 37w 5d Other Estimates 05/24/25 Ultrasound #1 37w 4d 05/23/25 Ultrasound #2 37w 5d Notes Visit Date: 05/07/25 Last Updated by: María Sanders CNM 44 yo lmp 08/16/24. edc: 05/23/25. 1st sono: 10wk1 on 10/25/24. EDC: 05/24/25. panel, 1 hr gtt high/3 hr gtt wnl, O+,abs-, rpr;;nr, rub imm, hbsag-,hiv- HC-. gc/ct-, A1c: 5.0, REID+/IGM-, afp,nipt,carrier screen-.GBS- Visit Date: 04/28/25 Last Updated by: María Sanders CNM GBS- Visit Date: 04/07/25 Last Updated by: María Sanders CNM 43 yo IUP 33 wk. LMP 08/16/25. EDC 05/24/25. 1st sono: 10/25/24: 9w6; EDC 05/24/25. O+,abs-, rpr;;nr, rub imm, hbsag-, hiv-, GC/CT-, UT-,UA-, hbsab-, hiv-, HC-, REID+/IGM-. 1 hr gtt: 154. 3 hr gtt: normal. A1: 5.0, NIPT/AFP and carrier screen- sono 03/17: efw: 47% Office Procedures OB Clinic LOC & Office Proc's Nursing/Assessment Patient Status: Established Patient OB Clinic Nursing Assessment: Medication Reconciliation, Update PMH in EMR and Vital Signs OB Clinic Coordination of Care: AMA, Complex Care and Chronic Disease 1-5, Consent,records obtained, informed consent, Education Simp Pt/Fam, Lab and Imaging orders, Results/Orders obtained and Staff clarify orders Special Needs: Heart tones Established Patient Charge Established Patient Point Assignment: 155 Established Patient Point Charge: EP Level 4 (120-155) Assessment & Plan Diagnosis / Problem List (1) Encounter for supervision of high risk in third trimester, antepartum: Status: Acute Plan To labor and delivery today for NST, BPP, PIH workup. Schedule induction of labor May 23, 2025 for AMA. Discussed labor precautions, kick counts, danger signs, ER precautions. Return week OB check Additional Plan Follow Up: 1 Week (OBC)
== END 2025-05-07 09:33 | disposition home or self-care (01) ==
LOC: HODSOBC 08:55
PROVIDERS: Supervising Provider Advanced Practice Midwife; Visit Provider Advanced Practice Midwife
DX: O09.523 Supervision of elderly multigravida, third trimester (principal); O09.43 Supervision of pregnancy with grand multiparity, third trimester; Z3A.37 37 weeks gestation of pregnancy
CPT/HCPCS: 99214; G0463

== ENCOUNTER 2025-05-07 10:56 | Outpatient (CLI) | payer MEDICAID, SELFPAY ==
[2025-05-07 11:02] VITALS: BP 117/74; PULSE 79
[2025-05-07 11:04] VITALS: BP 117/74; PULSE 79; RESP 17; RESP 98; TEMP 37
--- NOTE | 2025-05-07 11:22 | XR_ITS ---
Examination: Complete OB ultrasound greater than 14 weeks Date and time of exam: May 07, 2025 1209 hours INDICATIONS: -induced hypertension in the doctor's office today Findings: Viable intrauterine single fetus with single amniotic sac presentation cephalic Cardiac motion 140 BPM Placenta left lateral grade 2 Umbilical cord insertion 3 vessel seen Amniotic fluid index 12.0 cm spine maternal right Cervix 3.6 cm Ovaries obscured by bowel gas. Composite estimated gestational age based on BPD, head circumference, abdominal circumference, femur length is 35 weeks 3 days Estimated weight 3789 g. Survey of intracranial anatomy, spinal anatomy, abdominal anatomy, four-chamber heart performed with no abnormalities identified. Impression: Viable intrauterine gestation cephalic presentation.
[2025-05-07 11:32] VITALS: BP 105/60; PULSE 80
[2025-05-07 11:59] VITALS: BMI 34.9
[2025-05-07 11:59] LABS: Basophils # (Auto) 0.0 Thou/mm3 (0.0-0.2); Basophils % (Auto) 0 % (0-2.5); Eosinophils # (Auto) 0.1 Thou/mm3 (0.0-0.5); Eosinophils % (Auto) 1 % (0-10); Hematocrit 38.8 % (36.0-46.0); Hemoglobin 13.6 g/dL (12.0-16.0); Immature Granulocytes Auto 0.06 Thou/mm3 (0.00-0.00); Lymphocytes # (Auto) 1.6 Thou/mm3 (1.0-4.8); Lymphocytes % (Auto) 18 % (10-50); Mean Corpuscular HGB Conc 35.1 g/dl (31.0-37.0); Mean Corpuscular Hemoglobin 30.4 pg (25.0-35.0); Mean Corpuscular Volume 87 fL (80-100); Monocytes # (Auto) 0.6 Thou/mm3 (0.0-0.8); Monocytes % (Auto) 7 % (0-12); Neutrophils # (Auto) 6.2 Thou/mm3 (1.8-7.7); Neutrophils % (Auto) 73 % (37-80); Nucleated Red Blood Cell # 0.00 Thou/mm3 (0.00-0.00); Nucleated Red Blood Cell % 0 /100 WBC (0); Platelet Count 157 Thou/mm3 (140-440); RDW Standard Deviation 41.3 fL (36.4-46.3); Red Blood Count 4.48 Miln/mm3 (4.00-5.20); White Blood Count 8.5 Thou/mm3 (3.6-11.0)
[2025-05-07 12:12] LABS: Fibrinogen 419 mg/dL (175-375); INR 0.9 (0.9-1.3); Partial Thromboplastin Time 25.6 Seconds (22.0-36.0); Prothrombin Time 10.4 Seconds (9.0-12.2)
[2025-05-07 12:32] LABS: Collection Type, Urine Clean Catch
[2025-05-07 12:36] LABS: Bacteria,Urine 1+; Bilirubin,Urine Negative (Negative); Blood,Urine Negative (Negative); Clarity,Urine Turbid (Clear/Hazy); Color,Urine Lt-Yellow (Lt Yel-Yel); Glucose, Urine Negative (Negative); Ketones,Urine Negative (Negative); Leukocyte Esterase,Urine Positive (Negative); Nitrite,Urine Positive (Negative); PH,Urine 5.5 (5.0-7.0); Protein,Urine Negative (Neg - Trace); RBC,Urine 1 /hpf (0-3); Specific Gravity,Urine 1.011 (1.001-1.035); Squamous Epithelial Cell,Urine 12 /hpf (0-5); Urobilinogen,Urine Negative mg/dL (0.0-1.0); WBC,Urine 21 /hpf (0-5)
[2025-05-07 12:45] LABS: Alanine Aminotransferase 16 U/L (10-49); Albumin, Serum 3.4 gm/dL (3.5-5.0); Albumin/Globulin Ratio 1.5 (1.2-2.2); Alkaline Phosphatase 159 U/L (46-116); Anion Gap 12 (7-16); Aspartate Amino Transferase 20 U/L (0-34); BUN/Creatinine Ratio 15 Ratio (12-20); Bilirubin,Total 0.6 mg/dL (0.3-1.2); Blood Urea Nitrogen 6 mg/dL (9-23); Calcium 9.2 mg/dL (8.3-10.6); Calcium (Corrected) 9.7 mg/dL (8.5-10.1); Carbon Dioxide 20.9 mMol/L (20.0-31.0); Chloride 106 mMol/L (98-107); Creatinine (Component) 0.4 mg/dL (0.6-1.3); Estimated Creatinine Clearance 165.8 mL/min (>60); Globulin 2.2 gm/dL (2.3-3.5); Glucose 124 mg/dL (74-106); LDH (Lactate Dehydrogenase) 155 U/L (120-246); Osmolality,Calculated 276 (275-295); Potassium 3.5 mMol/L (3.4-5.1); Sodium 139 mMol/L (136-145); Total Protein 5.6 gm/dL (5.7-8.2); Uric Acid 7.0 mg/dL (3.1-7.8); eGFR > 60 See Note
[2025-05-07 12:53] VITALS: BP 109/70; PULSE 73
[2025-05-07 13:23] VITALS: BP 103/57; PULSE 77
[2025-05-07 13:53] VITALS: BP 97/60; PULSE 77
== END 2025-05-07 14:05 | disposition home or self-care (01) ==
LOC: S4S1 10:58 → S4SX 10:59
PROVIDERS: Referring Provider Advanced Practice Midwife; Visit Provider Advanced Practice Midwife
DX: O26.893 Other specified pregnancy related conditions, third trimester (principal); Z3A.35 35 weeks gestation of pregnancy; R03.0 Elevated blood-pressure reading, without diagnosis of hypertension
CPT/HCPCS: 36415; 59025; 76805; 80053; 81001; 83615; 84550; 85025; 85384; 85610; 85730

== ENCOUNTER 2025-05-14 13:10 | Outpatient (AMB) | payer MEDICAID, SELFPAY ==
[2025-05-14 13:17] VITALS: BP 137/84; PULSE 88; RESP 16; TEMP 36.2; O2SAT 97
--- NOTE | 2025-05-14 13:17 | AMB.OBVISIT ---
Vital Signs 05/14/25 13:17 Weight 77.621 kg Weight Measurement Method Standing Scale BP 137/84 H Blood Pressure Source Automatic Cuff Blood Pressure Location Left Upper Arm Position Sitting Respiration 16 Pulse 88 Pulse Source Monitor Temp 97.2 F Temp Source Oral Pulse Oximetry (%) 97 Oxygen Delivery Method Room Air Allergies/Home Meds Allergies & Medications Allergies No Known Allergies Allergy (Verified 05/14/25 13:19) Medication Reconciliation vits no.126-ferrous fum 28 mg iron-folic acid 800 mcg tablet (Classic ) 0.126 - 28 tab PO DAILY 30 days #60 tabs 05/14/25 [Rx] Intake Visit Data Collection New Patient or Established: Established Patient (seen at [facility] within 3 years) Reason for Visit:: OBC/ NEEDS REFILLS ON PRENATALS Seen by Clinical Staff ONLY (RN/MA): No Tool Technician Required: No Do You Feel Safe at Home: Yes Authorities Contacted: N/A PCP or OBGYN visit in last 3 months: Yes Hx Now: Yes Are you currently on any form of Control: No Pain Present Currently: No Pain Scale Used: Monsivais-Dumont/Numerical Pain scale:: 0 Smoking Status Smoking Status: Never smoker Questionnaires Covid-19 Vaccine Questionnaire Has patient been vacinated for Covid-19 Have you been vacinated for Covid-19: Yes PHQ-9 PHQ-2 Over the last 2 weeks, how often have you been bothered by any of the following problems? 1. Little interest or pleasure in doing things: not at all 2. Feeling down, depressed, or hopeless: not at all Total score: 0 PHQ-9 3. Trouble falling or staying asleep, or sleeping too much: Not at all 4. Feeling tired or having little energy: Not at all 5. Poor appetite or overeating: Not at all 6. Feeling bad about yourself - or that you are a failure or have let yourself or your family down: Not at all 7. Trouble concentrating on things, such as reading the newspaper or watching television: Not at all 8. Moving or speaking so slowly that other people could have noticed? - Or the opposite - being so fidgety or restless that you have been moving around a lot more than usual: not at all 9. Thoughts that you would be better off or of hurting yourself in some way: Not at all Total score: 0 If you checked off any problems, how difficult have these problems made it for you to do your work, take care of things at home, or get along with other people?: not difficult at all Source: Developed by Drs. Troy Rivas, Mitzi Aguilera, Woo [place] and colleagues, with an educational ayesha from [employer] 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 Holt's office with records. Patient had a 9-week ultrasound. She has had no problems she reports with the . Denies social habits. Denies surgeries. Denies any existence of chronic illness. Reports good movement. Denies any cramps bleeding or leaking fluid Reviewed OB records with patient. GBS next visit. I called for her ultrasound records from [facility]. Patient has a follow-up in 6 weeks. Discussed labor precautions. Return in 2 weeks OB check 04/21/25 <del>?</del> 35w 3d 76.657 kg 117/76 absent cephalic 35 145 active increased pressure, fetus active, no leaking or bleeding. mfm 04/29 increased pressure, fetus active, no leaking or bleeding. mfm 04/29. UTI. sore throat x 4 days GBS today, continue fkc bid. keep mfm appt 04/29. discuss labor precauution and danger s/s. rtc 1 week GBS today, continue fkc bid. keep mfm appt 8/12. discuss labor precauution and danger s/s. rtc 1 week. [place] [facility] [place] <del>?</del> 36w 3d 76.204 kg 114/74 absent cephalic 36 145 active Increased pressure. No OB complaints. Leaking no leaking fluid. Denies bleeding. Denies contractions. Reports good movement. Patient has MFM appointment on the Keep MFM appointment. Discussed labor precautions. Discussed kick counts twice a day. And ER precautions. Return in a week for recheck. Hydrate 05/07/25 <del>?</del> 37w 5d 77.621 kg 136/81 occasional cephalic 37 145 active deneis PIH complaints, increase uc,No VB, No LOF, fetus active NST/comp OB and PIH w/u today, urine- protein. sched IOL 05/23/25. discuss labor precaution, fkc bid 05/14/25 <del>?</del> 38w 5d 77.621 kg 137/84 occasional cephalic 38 140 active Denies PIH complaints today. Denies bleeding, denies leaking fluid. Occasional contraction and pressure. Reports good movement. Patient compliant with weekly NST BPP NST BPP today. Kick counts twice a day. Discussed labor precautions. Discussed ER precautions with parameters and signs symptoms of PIH. Refill prenatals. Increase fluids. Return a week OB check NST BPP today. Kick counts twice a day. Discussed labor precautions. Discussed ER precautions with parameters and signs symptoms of PIH. Refill prenatals. Increase fluids. Return a week OB check. IOL 05/23 GERMÁN Calculator Estimated Delivery Date Method Current WG Current Estimate 05/23/25 LMP (Certain) 38w 5d Other Estimates 05/24/25 Ultrasound #1 38w 4d 05/23/25 Ultrasound #2 38w 5d Notes Visit Date: 05/07/25 Last Updated by: María Sanders, RAMONE 44 yo lmp 08/16/24. edc: 05/23/25. 1st sono: 10wk1 on 10/25/24. EDC: 05/24/25. panel, 1 hr gtt high/3 hr gtt wnl, O+,abs-, rpr;;nr, rub imm, hbsag-,hiv- HC-. gc/ct-, A1c: 5.0, REID+/IGM-, afp,nipt,carrier screen-.GBS- Visit Date: 04/28/25 Last Updated by: María Sanders CNM GBS- Visit Date: 04/07/25 Last Updated by: María Sanders CNM 43 yo IUP 33 wk. LMP 08/16/25. EDC 05/24/25. 1st sono: 10/25/24: 9w6; EDC 05/24/25. O+,abs-, rpr;;nr, rub imm, hbsag-, hiv-, GC/CT-, UT-,UA-, hbsab-, hiv-, HC-, REID+/IGM-. 1 hr gtt: 154. 3 hr gtt: normal. A1: 5.0, NIPT/AFP and carrier screen- sono 03/17: efw: 47% Office Procedures OB Clinic LOC & Office Proc's Nursing/Assessment Patient Status: Established Patient OB Clinic Nursing Assessment: Medication Reconciliation, Update PMH in EMR and Vital Signs OB Clinic Coordination of Care: Consent,records obtained, informed consent, Lab and Imaging orders, Results/Orders obtained and Staff clarify orders Special Needs: Heart tones Established Patient Charge Established Patient Point Assignment: 95 Established Patient Point Charge: EP Level 3 (80-115) Assessment & Plan Diagnosis / Problem List (1) Encounter for supervision of high risk in third trimester, antepartum: Status: Acute (2) Advanced maternal age (AMA) in : Status: Acute (3) Grand multiparity with current : Status: Acute Plan Refill prenatals. Increase fluids. Discussed labor precautions. Discussed PIH signs and symptoms and ER precautions. Continue with weekly NST BPP. Induction of labor for May 23. Return a week OB check Additional Plan Follow Up: 1 Week (obc)
== END 2025-05-14 13:34 | disposition home or self-care (01) ==
LOC: HODSOBC 13:10
PROVIDERS: Supervising Provider Advanced Practice Midwife; Visit Provider Advanced Practice Midwife
DX: O09.523 Supervision of elderly multigravida, third trimester (principal); O09.43 Supervision of pregnancy with grand multiparity, third trimester; Z3A.38 38 weeks gestation of pregnancy
CPT/HCPCS: 99213; G0463

== ENCOUNTER 2025-05-14 13:51 | Outpatient (CLI) | payer MEDICAID, SELFPAY ==
[2025-05-14 13:51] VITALS: BP 120/73; PULSE 95; RESP 17; RESP 98; TEMP 36.8; BMI 35.5
[2025-05-14 14:01] VITALS: BP 120/73; PULSE 85
[2025-05-14 14:03] VITALS: PULSE 84; O2SAT 97
[2025-05-14 14:08] VITALS: PULSE 78; O2SAT 97
[2025-05-14 14:13] VITALS: PULSE 80; O2SAT 97
[2025-05-14 14:18] VITALS: PULSE 79; O2SAT 97
--- NOTE | 2025-05-14 14:27 | XR_ITS ---
Examination: Biophysical profile, ultrasound Date and time of exam: May 14, 2025 1428 hrs. Indications: Diagnosis advanced maternal age, diagnosis induced hypertension. Technique: Multiple transabdominal sonographic images of the pelvis abdomen obtained. Attention is directed to the breathing movement, gross body movement, amniotic fluid volume and tone. Findings: Amniotic fluid index 9.9 cm Total biophysical profile is 8 of 8. breathing movement is 2. Gross body movement is 2. tone is 2. Qualitative amniotic fluid volume is 2 Impression: Biophysical profile is 8 of 8.
== END 2025-05-14 14:55 | disposition home or self-care (01) ==
LOC: S4S1 13:52 → S4SX 13:53
PROVIDERS: Referring Provider Obstetrics & Gynecology; Visit Provider Advanced Practice Midwife
DX: O16.3 Unspecified maternal hypertension, third trimester (principal); O09.523 Supervision of elderly multigravida, third trimester; Z3A.38 38 weeks gestation of pregnancy
CPT/HCPCS: 59025; 76819

== ENCOUNTER 2025-05-18 11:59 | Outpatient (CLI) | payer MEDICAID, SELFPAY ==
[2025-05-18] VITALS (17 sets, daily range): BP systolic 117–121; BP diastolic 70–72; PULSE 75–96; RESP 16–95; TEMP 36.8; O2SAT 93–97; BMI 34.3
== END 2025-05-18 13:13 | disposition home or self-care (01) ==
LOC: S4S1 12:00 → S4SX 12:13
PROVIDERS: Referring Provider Specialist; Visit Provider Specialist
DX: Z34.83 Encounter for supervision of other normal pregnancy, third trimester (principal); Z36.9 Encounter for antenatal screening, unspecified; Z3A.39 39 weeks gestation of pregnancy
CPT/HCPCS: 59025

== ENCOUNTER 2025-05-21 13:47 | Outpatient (AMB) | payer MEDICAID, SELFPAY ==
[2025-05-21 13:59] VITALS: BP 137/84; PULSE 76; RESP 16; TEMP 36.2; O2SAT 98
--- NOTE | 2025-05-21 13:59 | OBCLNT_ITS ---
Vital Signs 05/21/25 13:59 Weight 78.471 kg Weight Measurement Method Standing Scale BP 137/84 H Blood Pressure Source Automatic Cuff Blood Pressure Location Left Upper Arm Position Sitting Respiration 16 Pulse 76 Pulse Source Monitor Temp 97.2 F Temp Source Oral Pulse Oximetry (%) 98 Oxygen Delivery Method Room Air Allergies/Home Meds Allergies & Medications Allergies No Known Allergies Allergy (Verified 05/21/25 14:00) Medication Reconciliation vits no.126-ferrous fum 28 mg iron-folic acid 800 mcg tablet (Classic ) 0.126 - 28 tab PO DAILY 30 days #60 tabs 05/14/25 [Rx Confirmed 05/21/25] Intake Visit Data Collection New Patient or Established: Established Patient (seen at [facility] within 3 years) Reason for Visit:: OBC Seen by Clinical Staff ONLY (RN/MA): No Fence Machine Operator Required: No Do You Feel Safe at Home: Yes Authorities Contacted: N/A PCP or OBGYN visit in last 3 months: Yes Date of Last PCP or OBGYN visit: 05/18/25 Hx Now: Yes Are you currently on any form of Control: No Pain Present Currently: No Pain Scale Used: Monsivais-Dumont/Numerical Pain scale:: 0 Smoking Status Smoking Status: Never smoker Questionnaires Covid-19 Vaccine Questionnaire Has patient been vacinated for Covid-19 Have you been vacinated for Covid-19: No PHQ-9 PHQ-2 Over the last 2 weeks, how often have you been bothered by any of the following problems? 1. Little interest or pleasure in doing things: not at all 2. Feeling down, depressed, or hopeless: not at all Total score: 0 PHQ-9 3. Trouble falling or staying asleep, or sleeping too much: Not at all 4. Feeling tired or having little energy: Not at all 5. Poor appetite or overeating: Not at all 6. Feeling bad about yourself - or that you are a failure or have let yourself or your family down: Not at all 7. Trouble concentrating on things, such as reading the newspaper or watching television: Not at all 8. Moving or speaking so slowly that other people could have noticed? - Or the opposite - being so fidgety or restless that you have been moving around a lot more than usual: not at all 9. Thoughts that you would be better off or of hurting yourself in some way: Not at all Total score: 0 If you checked off any problems, how difficult have these problems made it for you to do your work, take care of things at home, or get along with other people?: not difficult at all Source: Developed by Drs. Troy Rivas, Mitzi Aguilera, [place]oo [place] and colleagues, with an educational ayesha from [employer]. 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 Holt's office with records. Patient had a 9-week ultrasound. She has had no problems she reports with the . Denies social habits. Denies surgeries. Denies any existence of chronic illness. Reports good movement. Denies any cramps bleeding or leaking fluid Reviewed OB records with patient. GBS next visit. I called for her ultrasound records from [facility]. Patient has a follow-up in 6 weeks. Discussed labor precautions. Return in 2 weeks OB check 04/21/25 -?--?-?-?-?-?-?-?-?-?-?-?- 35w 3d 76.657 kg 117/76 absent cephalic 35 145 active increased pressure, fetus active, no leaking or bleeding. mfm 8/ increased pressure, fetus ac tive, no leaking or bleeding. mfm 8/12. UTI. sore throat x 4 days GBS today, tamara nue fkc bid. keep mfm appt 04/29. discuss labor precauution and danger s/s. rtc 1 week GBS today, continue fkc bid. keep mfm appt 04/29. discuss labor precauution and danger s/s. rtc 1 week. Amoxicillin 500 bid x7 to [facility] [place] 04/28/25 -?-?-?-?-?-?-?-?-?-?-?-?- 36w 3d 76.204 kg 114/74 absent cephalic 36 145 active Increased pressure. No OB complaints. Leaking no leaking fluid. Denies bleeding. Denies contractions. Reports good movement. Patient has MFM appointment on the Keep MFM appoint ment. Discussed labor precautions. Discussed kick counts twice a day. And ER precautions. Return in a week for recheck. Hydrate 05/07/25 -?-?-?-?-?-?-?-?-?-?-?-?- 37w 5d 77.621 kg 136/81 occasional cephalic 37 145 active deneis PIH complaints, increase uc,No VB, No LOF, fetus active NST/comp OB and PIH w/u today, urine- protein. sched IOL 05/23/25. discuss labor precaution, fkc bid 05/14/25 -?-?-?-?-?-?-?-?-?-?-?-?- 38w 5d 77.621 kg 137/84 occasional cephalic 38 140 active Denies PIH complaints today. Denies bleeding, denies leaking fluid. Occasional contraction and pressure. Reports good movement. Patient compliant with weekly NST BPP NST BPP today. Kick counts twice a day. Discussed labor precautions. Discussed ER precautions with parameters and signs symptoms of P IH. Refill prenatals. Increase fluids. Return a week OB check NST BPP today. Kick counts twice a day. Discussed labor precautions. Discussed ER precautions with parameters and signs symptoms of PIH. Refill prenatals. Increase fluids. Return a week OB check. IOL 05/2305/21/25 -?-?-?-?-?-?-?-?-?-?-?-?- 39w 5d 78.471 kg 137/84 occasional cephalic 38 145 active 1 -3 50 Denies PIH complaints. No headache. Reports movement. Denies bleeding or leaking. Occasional contraction and pressure To labor and delivery today for PIH workup and blood pressure monitoring. Patient is for induction May 23. Reviewed labor precautions kick counts twice a day. Discussed danger signs symptoms and ER precautions. I discussed PIH precautions. Patient will come in a week for OB check if needed To labor and delivery today for PIH workup and blood pressure monitoring. Patient is for induction May 23. Reviewed labor precautions kick counts twice a day. Discussed danger signs symptoms and ER precautions. I discussed PIH precautions. Patient will come in a week for OB check if needed. PIH labs, NST and BP are all normal today. MAJOR normal GERMÁN Calculator Estimated Delivery Date Method Current WG Current Estimate 05/23/25 LMP (Certain) 39w 5d Other Estimates 05/24/25 Ultrasound #1 39w 4d 05/23/25 Ultrasound #2 39w 5d Notes Visit Date: 05/07/25 Last Updated by: María Sanders CNM 44 yo lmp 08/16/24. edc: 05/23/25. 1st sono: 10wk1 on 10/25/24. EDC: 05/24/25. panel, 1 hr gtt high/3 hr gtt wnl, O+,abs-, rpr;;nr, rub imm, hbsag-,hiv- HC-. gc/ct-, A1c: 5.0, REID+/IGM-, afp,nipt,carrier screen-.GBS- Visit Date: 04/28/25 Last Updated by: María Sanders CNM GBS- Visit Date: 04/07/25 Last Updated by: María Sanders CNM 43 yo IUP 33 wk. LMP 08/16/25. EDC 05/24/25. 1st sono: 10/25/24: 9w6; EDC 05/24/25. O+,abs-, rpr;;nr, rub imm, hbsag-, hiv-, GC/CT-, UT-,UA-, hbsab-, hiv-, HC-, REID+/IGM-. 1 hr gtt: 154. 3 hr gtt: normal. A1: 5.0, NIPT/AFP and carrier screen- sono 03/17: efw: 47% Office Procedures OB Clinic LOC & Office Proc's Nursing/Assessment Patient Status: Established Patient OB Clinic Nursing Assessment: Medication Reconciliation, Update PMH in EMR and Vital Signs OB Clinic Coordination of Care: Education Complex Pt/Fam, Consent,records obtained, informed consent, Lab and Imaging orders and Staff clarify orders Special Needs: Heart tones Established Patient Charge Established Patient Point Assignment: 110 Established Patient Point Charge: EP Level 3 (80-115) Assessment & Plan Diagnosis / Problem List (1) Grand multiparity with current : Status: Acute (2) Advanced maternal age (AMA) in : Status: Acute (3) Encounter for supervision of high risk in third trimester, antepartum: Status: Acute Plan To labor and delivery for PIH evjuarez, BELENT BPP. Discussed kick count. Discussed PIH signs and symptoms with patient. She has induction of labor scheduled for May 23 because of AMA. Discussed labor precautions. Increase fluids and return in a week if undelivered for recheck Additional Plan Follow Up: 1 Week (obc)
== END 2025-05-21 14:21 | disposition home or self-care (01) ==
LOC: HODSOBC 13:47
PROVIDERS: Supervising Provider Advanced Practice Midwife; Visit Provider Advanced Practice Midwife
DX: O09.523 Supervision of elderly multigravida, third trimester (principal); O09.43 Supervision of pregnancy with grand multiparity, third trimester; Z3A.39 39 weeks gestation of pregnancy
CPT/HCPCS: 99213; G0463

== ENCOUNTER 2025-05-21 14:44 | Outpatient (CLI) | payer MEDICAID, SELFPAY ==
[2025-05-21] VITALS (19 sets, daily range): BP systolic 105–124; BP diastolic 61–73; PULSE 66–79; RESP 16–98; TEMP 36.7; O2SAT 96–99; BMI 34.8
--- NOTE | 2025-05-21 14:56 | XR_ITS ---
Examination: Biophysical profile, ultrasound Date and time of exam: May 21, 2025 1509 hours INDICATIONS: -induced hypertension today Technique: Multiple transabdominal sonographic images of the pelvis abdomen obtained. Attention is directed to the breathing movement, gross body movement, amniotic fluid volume and tone. Findings: Amniotic fluid index 12.5 cm Total biophysical profile is 8 of 8. breathing movement is 2. Gross body movement is 2. tone is 2. Qualitative amniotic fluid volume is 2 Impression: Biophysical profile is 8 of 8.
[2025-05-21 15:32] LABS: Collection Type, Urine Clean Catch
[2025-05-21 15:38] LABS: Basophils # (Auto) 0.0 Thou/mm3 (0.0-0.2); Basophils % (Auto) 0 % (0-2.5); Eosinophils # (Auto) 0.0 Thou/mm3 (0.0-0.5); Eosinophils % (Auto) 1 % (0-10); Hematocrit 38.4 % (36.0-46.0); Hemoglobin 13.2 g/dL (12.0-16.0); Immature Granulocytes Auto 0.07 Thou/mm3 (0.00-0.00); Lymphocytes # (Auto) 1.5 Thou/mm3 (1.0-4.8); Lymphocytes % (Auto) 17 % (10-50); Mean Corpuscular HGB Conc 34.4 g/dl (31.0-37.0); Mean Corpuscular Hemoglobin 29.6 pg (25.0-35.0); Mean Corpuscular Volume 86 fL (80-100); Monocytes # (Auto) 0.7 Thou/mm3 (0.0-0.8); Monocytes % (Auto) 8 % (0-12); Neutrophils # (Auto) 6.4 Thou/mm3 (1.8-7.7); Neutrophils % (Auto) 74 % (37-80); Nucleated Red Blood Cell # 0.00 Thou/mm3 (0.00-0.00); Nucleated Red Blood Cell % 0 /100 WBC (0); Platelet Count 170 Thou/mm3 (140-440); RDW Standard Deviation 41.1 fL (36.4-46.3); Red Blood Count 4.46 Miln/mm3 (4.00-5.20); White Blood Count 8.7 Thou/mm3 (3.6-11.0)
[2025-05-21 15:50] LABS: Creatinine,Random Urine 80 mg/dL (30-125); Protein Total, Random Urine 15 mg/dL (1-14)
[2025-05-21 16:09] LABS: Alanine Aminotransferase 15 U/L (10-49); Albumin, Serum 3.6 gm/dL (3.5-5.0); Albumin/Globulin Ratio 1.5 (1.2-2.2); Alkaline Phosphatase 201 U/L (46-116); Anion Gap 11 (7-16); Aspartate Amino Transferase 17 U/L (0-34); BUN/Creatinine Ratio 16 Ratio (12-20); Bilirubin,Total 0.5 mg/dL (0.3-1.2); Blood Urea Nitrogen 8 mg/dL (9-23); Calcium 9.9 mg/dL (8.3-10.6); Calcium (Corrected) 10.2 mg/dL (8.5-10.1); Carbon Dioxide 22.1 mMol/L (20.0-31.0); Chloride 106 mMol/L (98-107); Creatinine (Component) 0.5 mg/dL (0.6-1.3); Estimated Creatinine Clearance 132.4 mL/min (>60); Globulin 2.4 gm/dL (2.3-3.5); Glucose 88 mg/dL (74-106); LDH (Lactate Dehydrogenase) 151 U/L (120-246); Osmolality,Calculated 274 (275-295); Potassium 3.7 mMol/L (3.4-5.1); Sodium 139 mMol/L (136-145); Total Protein 6.0 gm/dL (5.7-8.2); eGFR > 60 See Note
[2025-05-21 16:11] LABS: Bacteria,Urine 1+; Bilirubin,Urine Negative (Negative); Blood,Urine Negative (Negative); Color,Urine Yellow (Lt Yel-Yel); Glucose, Urine Negative (Negative); Ketones,Urine Negative (Negative); Leukocyte Esterase,Urine Positive (Negative); Nitrite,Urine Positive (Negative); PH,Urine 6.0 (5.0-7.0); Protein,Urine Negative (Neg - Trace); RBC,Urine 5 /hpf (0-3); Specific Gravity,Urine 1.020 (1.001-1.035); Squamous Epithelial Cell,Urine 2 /hpf (0-5); Urobilinogen,Urine Negative mg/dL (0.0-1.0); WBC,Urine 56 /hpf (0-5)
[2025-05-21 16:17] LABS: Uric Acid 6.4 mg/dL (3.1-7.8)
[2025-05-21 16:22] LABS: Clarity,Urine Hazy (Clear/Hazy)
[2025-05-21 16:29] LABS: Fibrinogen 477 mg/dL (175-375); INR 0.9 (0.9-1.3); Partial Thromboplastin Time 25.5 Seconds (22.0-36.0); Prothrombin Time 10.2 Seconds (9.0-12.2)
== END 2025-05-21 16:35 | disposition home or self-care (01) ==
LOC: S4S1 14:46 → S4SX 14:47
PROVIDERS: Referring Provider Obstetrics & Gynecology; Visit Provider Advanced Practice Midwife
DX: O26.899 Other specified pregnancy related conditions, unspecified trimester (principal); R03.0 Elevated blood-pressure reading, without diagnosis of hypertension; Z3A.00 Weeks of gestation of pregnancy not specified
CPT/HCPCS: 36415; 59025; 76819; 80053; 81001; 82570; 83615; 84156; 84550; 85025; 85384; 85610; 85730

== ENCOUNTER 2025-05-22 14:20 | Inpatient (IN) | payer MEDICAID, SELFPAY ==
[2025-05-22] VITALS (61 sets, daily range): BP systolic 106–146; BP diastolic 59–87; PULSE 63–92; RESP 16–98; TEMP 36.6–36.9; O2SAT 94–100; BMI 34.7; BMI 34.9
--- NOTE | 2025-05-22 15:59 | XR_ITS ---
Examination: age Limited Technique: Limited transabdominal sonographic images pelvis Date and time: May 22, 2025, 1607 hrs. Indications: Preop labor induction today, unknown presentation. Findings: Viable intrauterine gestation cephalic presentation. spine maternal right. Cardiac motion 143 BPM. Impression: Viable intrauterine gestation cephalic presentation
[2025-05-22 16:30] LABS: Basophils # (Auto) 0.0 Thou/mm3 (0.0-0.2); Basophils % (Auto) 0 % (0-2.5); Eosinophils # (Auto) 0.0 Thou/mm3 (0.0-0.5); Eosinophils % (Auto) 1 % (0-10); Hematocrit 39.3 % (36.0-46.0); Hemoglobin 13.7 g/dL (12.0-16.0); Immature Granulocytes Auto 0.05 Thou/mm3 (0.00-0.00); Lymphocytes # (Auto) 1.5 Thou/mm3 (1.0-4.8); Lymphocytes % (Auto) 18 % (10-50); Mean Corpuscular HGB Conc 34.9 g/dl (31.0-37.0); Mean Corpuscular Hemoglobin 29.7 pg (25.0-35.0); Mean Corpuscular Volume 85 fL (80-100); Monocytes # (Auto) 0.7 Thou/mm3 (0.0-0.8); Monocytes % (Auto) 8 % (0-12); Neutrophils # (Auto) 6.2 Thou/mm3 (1.8-7.7); Neutrophils % (Auto) 73 % (37-80); Nucleated Red Blood Cell # 0.00 Thou/mm3 (0.00-0.00); Nucleated Red Blood Cell % 0 /100 WBC (0); Platelet Count 163 Thou/mm3 (140-440); RDW Standard Deviation 41.1 fL (36.4-46.3); Red Blood Count 4.62 Miln/mm3 (4.00-5.20); White Blood Count 8.4 Thou/mm3 (3.6-11.0)
[2025-05-22 17:08] LABS: Syphilis Nonreactive (Nonreactive)
--- NOTE | 2025-05-22 19:29 | PD.LDHP ---
Documentation for date of: 05/22/25 OB Labor/Induct. HPI History of Present Illness Chief complaint: left vulvar lesion with pain/swelling : 7 Para: 5 Term pregnancies: 5 pregnancies: 0 Living children: 5 History of Abortions: Spontaneous and Elective: 1 History of Vaginal deliveries: 5 History of sections: No History of : No Date of last menstrual period: 08/16/24 GERMÁN: 05/23/25 Gestational Age (weeks): 39 Gestational Age (days): 6 Gestational age based on last menstrual period: 39 History of present illness: Leidy presents to triage for concern of left vulvar lesion. She notes having cervical exam in office yesterday and today feels a lesion on the vulva. She wonders if it could be from latex allergy. On further review, Dr. Vasquez diagnosed her with HSV last January after she sat on a hot tractor and then had a lesion on her vulva. She was prescribed acyclovir and then later acyclovir cream when she had what she believed was an ingrown hair, but worried it might be another HSV lesion. She was not started on valtrex or acyclovir at 36 weeks, because she did not mention it to her OB provider when she transferred care in 3rd trimester. She notes neither she nor her have oral HSV and has never had a genital lesion. She was scheduled for IOL tomorrow for AMA (age 44). History of Present Dating criteria: LMP confirmed by 1st trimester US Adequate Care: Yes Narrative: Hx of 5 uncomplicated Current complicated by: -AMA (age 44) -Grandmultiparity -Genital HSV -Current BMI 34.9 Labs Maternal Blood Type: O Pos Labs: Positive: Rubella Titre and Negative: RPR, Hepatitis B, HIV, Chlamydia, Gonorrhea and Group Beta Strep Narrative: Per chart: 1 hr glucola 152/3 hr gtt wnl, A1c: 5.0, Hepatitis A IgG positive/IgM negative AFP, NIPT and carrier screen negative Review of Systems Review of Systems Narrative Review of Systems: Review of Systems Systems Reviewed: All systems reviewed, normal except as documented Constitutional Constitutional: Denies body ache(s), Denies chills, Denies fever(s) and Denies headache(s) ENT Ears, Nose, Mouth, and Throat: Denies headache(s) and Denies vertigo Cardiovascular Cardiovascular: Denies chest pain, Denies palpitations, Denies dyspnea and Denies syncope Respiratory Respiratory: Denies cough, Denies dyspnea Gastrointestinal Gastrointestinal: Denies nausea and Denies vomiting Neurologic Neurologic: Denies convulsions, Denies headache(s), Denies other visual disturbances, Denies syncope and Denies vertigo Past Medical History Family History OTHER FAMILY HX: non-contributory Surgical History SURGICAL: Negative Section OTHER SURGICAL HX: appendectomy Social History SOCIAL: . 5 children. No ETOH/illicit drug use or tobacco use Past Medical History Comments PMH COMMENT: Genital HSV Current BMI 34.9 Hx of depression Meds Home Medications and Allergies Allergies Allergy/AdvReac Type Severity Reaction Status Date / Time No Known Allergies Allergy Verified 05/22/25 16:29 OB Exam Physical Exam Vital signs: Temp Pulse Resp BP Pulse Ox 97.8 F 79 17 133/80 H 95 05/22/25 18:22 05/22/25 19:26 05/22/25 18:22 05/22/25 19:26 05/22/25 19:29 Narrative: General: well developed, well nourished, no acute distress, conversant Cardiac: normal heart rate Lungs: breathing without distress Abdomen: soft, gravid, non-tender, no rebound or guarding Extremities: no pain with palpation of calves Genital exam (with RN and CNM Marilyn): on the left vulva there is a definite cluster of vesicular lesions with a weeping sheen over them Detailed Labor and Delivery Exam Membranes: intact monitor accelerations: 15x15 monitor decelerations: None shelter variability: Moderate (11-25) OB Results Labs 05/22/25 16:00 Labs: Short CBC 05/22/25 Range/Units 16:00 WBC 8.4 (3.6-11.0) Thou/mm3 Hgb 13.7 (12.0-16.0) g/dL Hct 39.3 (36.0-46.0) % Plt Count 163 (140-440) Thou/mm3 OB Assessment & Plan Assessment and Plan (1) Genital herpes simplex virus (HSV) infection in mother affecting : Status: Acute Assessment and plan: Leidy is a 44yo with SIUP at 39&6wk with active left vulvar HSV outbreak at term. Vitals wnl. Reassuring assessment. PMhx/ complicated by: Genital HSV AMA, age 44 Grandmultiparity Current BMI 34.9 Care with RAMONE Sanders Plan: -Admit to L&D -Establish IV, routine labs -NPO (She last ate at 1300 today) -I discussed with patient my recommendation for delivery to avoid complications of HSV that could be fatal or cause permanent disability. She voiced her understanding and desire to proceed with . -Counseled/consented re: section (with RN as signal tower director). Discussed all r/b/a to include: bleeding (possible need for blood transfusion), infection (subcutaneous, deeper layers or uterine with possible need for prolonged admission or re-admission for IV antibiotics, I&D with wound packing, etc), injury to nearby structures such as bladder, bowel, ureters, blood vessels, nerves with possible need for re-operation, pain, injury to baby, hysterectomy, DVT/PE, . Answered all questions to patient and their support person's satisfaction. -IV abx ppx: ancef 2g IV -Nursing and anesthesia team aware of plan for section. Will proceed to OR when team is ready (2) Advanced maternal age (AMA) in : Status: Acute (3) Grand multiparity with current : Status: Acute (3) Grand multiparity with current Qualifiers: Trimester: third trimester Qualified Code(s): O09.43 - Supervision of with grand multiparity, third trimester
[2025-05-22] MEDS: FAMOTIDINE INJ 10 MG/ML VIAL 2 ML 20 MG IV (19:54)
[2025-05-22] MEDS: ceFAZolin/D5W 2 GM IV 2 GM/100 ML BAG IV (19:54)
[2025-05-22] MEDS: METOCLOPRAMIDE INJ 5 MG/ML VIAL 2 ML 10 MG IVP (19:56)
[2025-05-22] MEDS: OXYTOCIN in NS 20 units 20 UNIT/1,000 ML BAG 125 UNIT IV (22:05)
--- NOTE | 2025-05-22 22:26 | PD.GYNPROC ---
Operative Note - GRAIN [employer]OVELER Procedure Date of procedure: 05/22/25 Procedure Performed: Primary Low Transverse Section Indication: Leidy is a 44yo with SIUP at 39&6wk with active left vulvar HSV outbreak at term. Pre-Op diagnosis: SIUP at 39w6d Left vulvar HSV outbreak at term. AMA, age 44 Grandmultiparity Current BMI 34.9 Post-Op diagnosis: SIUP at 39w6d Left vulvar HSV outbreak at term. AMA, age 44 Grandmultiparity Current BMI 34.9 Anesthesia type: Spinal Fluids: crystalloid Fluid amount (mL): 3,000 Urine output (mL): 300 Specimen: other (placenta and cord not sent to pathology) Estimated blood loss (ml): 1,000 Findings: Female infant in cephalic presentation, apgars 9/9, 3680g, time of 21:00. Clear amniotic fluid. Normal appearing uterus, fallopian tubes (small simple left paratubal cyst) and ovaries. Complications: none Narrative: After obtaining informed consent, the patient was taken to the operating room. There was reassuring heart rate tracing prior. Spinal anesthesia was administered. A aldana catheter was placed and bilateral sequential compression devices were placed. She was then prepped and draped in the normal sterile fashion in the dorsal supine position with left lateral tilt. A timeout was performed to confirm patient name, date of , procedure and indication. The team was in agreement. Spinal anesthesia was found to be adequate using an Allis clamp. Anceph 2g IV x1 were given for prophylaxis. A Pfannenstiel skin incision was then made with the scalpel and carried through to the underlying layer of fascia. The fascia was incised in the midine and the incision was extended laterally with the Arguello scissors. The superior and inferior aspects of the fascial incision were then grasped with the Celso clamps, elevated and the underlying rectus muscles were dissected off bluntly and sharply. The peritoneum was entered digitally and the rectus muscles were then in the midline. The peritoneal incision was then extended superiorly and inferiorly with good visualization of the bladder. An Macario retractor was placed and the vesicouterine peritoneum was then identified, grasped with the pickups, and entered sharply with the Metzenbaum scissors. The incision was extended laterally and the bladder flap created digitally. The lower uterine segment was scored in a transverse fashion with the scalpel. The uterus was then entered bluntly and the incision was extended with traction with clear amniotic fluid noted. The infant's head was elevated to the level of the incision. Fundal pressure was applied. The head was delivered atraumatically in the OA position. The anterior shoulder, posterior shoulder and corpus were delivered without difficulty. The nose and mouth were suctioned with bulb suction and cord was clamped x2 and cut. Infant was vigorous. The infant was handed off to the awaiting nursing team. Cord blood obtained for typing. The placenta was then removed with uterine massage and cord traction. The uterus was left in situ and cleared of all clot and debris. Angles of hysterotomy and areas of brisk bleeding were grasped with Allis clamps. The uterine incision was then repaired with 0-monocryl suture in a running locking fashion. A second layer of 0-monocryl was used to close the hysterotomy incision in an imbricating fashion. The uterine incision was inspected and hemostasis was noted. Surgicel powder was placed along the closed hysterotomy. In addition to standard IV pitocin, patient received TXA 1g IV x1. Good uterine tone was achieved and maintained throughout. The gutters were cleared of all clot. Macario retractor was removed. The peritoneum was closed using a 3-0 vicryl suture in running fashion. The rectus muscles were inspected and small areas of oozing were cauterized. The fascia was reapproximated with 0-Vicryl suture in a running fashion. The subcutaneous tissue was then irrigated. Tiffani's fascia was reapproximated using 3-0 vicryl suture in a running fashion. The skin was reapproximated with 4-0 monocryl suture in running subcuticular fashion. The incision was cleaned with a wet lap and dried with a dry lap. Ykxnamlqd-ysgkhnnzyrv-gdtt bandage was applied overlying the incision and activated according to facing cutting machine operator instructions. Fundus was firm at U-1cm. Sponge, lap and needle counts were correct x2. The procedure was without complications and the patient tolerated the procedure well. She was taken to recover further on Labor and Delivery, in stable condition. Surgical staff Operation Date: 05/22/25 21:00 Case Staff AUTOMO[employer]LE APPRAISER: Charlie Vasques RN First Assistant: María Candelario Diagnosis Discharge Diagnosis (1) delivery delivered: Status: Acute (2) Genital herpes simplex virus (HSV) infection in mother affecting : Status: Acute (3) Grand multiparity with current : Status: Acute (4) Advanced maternal age (AMA) in : Status: Acute Problem List Completed Was Problem List Reviewed/Reconciled?: Yes (3) Grand multiparity with current Qualifiers: Trimester: third trimester Qualified Code(s): O09.43 - Supervision of with grand multiparity, third trimester
[2025-05-22] MEDS: KETOROLAC INJ 30 MG/ML VIAL IVP (23:47)
[2025-05-23] VITALS: BP 123/67; PULSE 67; RESP 16; TEMP 36.9; O2SAT 99
[2025-05-23] MEDS: OXYTOCIN in NS 20 units 20 UNIT/1,000 ML BAG 125 UNIT IV (03:01)
[2025-05-23 04:00] VITALS: BP 116/71; PULSE 64; RESP 18; TEMP 36.7; O2SAT 96
[2025-05-23 05:07] LABS: Basophils # (Auto) 0.0 Thou/mm3 (0.0-0.2); Basophils % (Auto) 0 % (0-2.5); Eosinophils # (Auto) 0.0 Thou/mm3 (0.0-0.5); Eosinophils % (Auto) 0 % (0-10); Hematocrit 35.0 % (36.0-46.0); Hemoglobin 12.2 g/dL (12.0-16.0); Immature Granulocytes Auto 0.05 Thou/mm3 (0.00-0.00); Lymphocytes # (Auto) 1.6 Thou/mm3 (1.0-4.8); Lymphocytes % (Auto) 15 % (10-50); Mean Corpuscular HGB Conc 34.9 g/dl (31.0-37.0); Mean Corpuscular Hemoglobin 30.0 pg (25.0-35.0); Mean Corpuscular Volume 86 fL (80-100); Monocytes # (Auto) 0.7 Thou/mm3 (0.0-0.8); Monocytes % (Auto) 7 % (0-12); Neutrophils # (Auto) 8.7 Thou/mm3 (1.8-7.7); Neutrophils % (Auto) 78 % (37-80); Nucleated Red Blood Cell # 0.00 Thou/mm3 (0.00-0.00); Nucleated Red Blood Cell % 0 /100 WBC (0); Platelet Count 149 Thou/mm3 (140-440); RDW Standard Deviation 41.4 fL (36.4-46.3); Red Blood Count 4.06 Miln/mm3 (4.00-5.20); White Blood Count 11.2 Thou/mm3 (3.6-11.0)
[2025-05-23] MEDS: KETOROLAC INJ 30 MG/ML VIAL IVP ×3 (05:57→18:10)
[2025-05-23] MEDS: ACYCLOVIR 800 MG TABLET PO ×3 (05:57→22:24)
[2025-05-23 08:35] VITALS: BP 121/76; PULSE 78; RESP 17; TEMP 36.9; O2SAT 96
--- NOTE | 2025-05-23 08:47 | PD.LDPPPRG ---
Subjective Subjective Interval history: Delivery type: Patient doing well this morning. No acute complaints. Ambulating, tolerating p.o. and voiding without difficulty. HTN/Pre-Eclampsia screen: No chest pain, shortness of breath, headache, visual changes, epigastric or right upper quadrant pain. Breast-feeding, lochia diminishing. Bowel: Flatus+ Exam Vital Signs Temp Pulse Resp BP Pulse Ox O2 Del Method 98.1 F 64 18 116/71 96 Room Air 05/23/25 04:00 05/23/25 04:00 05/23/25 04:00 05/23/25 04:00 05/23/25 04:00 05/23/25 04:00 Constitutional Constitutional: no acute distress Routine HEENT Exam Head: Present normocephalic and atraumatic Eye: Present EOMI and PERRL ENT: Present mucous membranes moist Routine Neck Exam Neck: Present supple and trachea midline Routine Respiratory Exam Respiratory: Present chest non-tender, lungs clear, normal breath sounds and no resp distress Routine Cardiovascular Exam Cardiovascular: Present RRR Routine Abdominal Exam Abdominal: Present soft and normoactive bowel sounds Routine Extremities Exam Extremities: Present full ROM Routine Skin Exam Skin: Present intact, dry and warm Routine Neurological Exam Neurological: Present alert, oriented X3 and CN II-XII intact Routine Psychiatric Exam Psychiatric: Present normal affect and normal thought process Objective Labs 05/23/25 04:40 Labs: Laboratory Results - last 24 hr 05/22/25 05/23/25 16:00 04:40 WBC 8.4 11.2 H RBC 4.62 4.06 Hgb 13.7 12.2 Hct 39.3 35.0 L MCV 85 86 MCH 29.7 30.0 MCHC 34.9 34.9 RDW Std Deviation 41.1 41.4 Plt Count 163 149 Neut % (Auto) 73 78 Lymph % (Auto) 18 15 Appling % (Auto) 8 7 Eos % (Auto) 1 0 Baso % (Auto) 0 0 Neut # (Auto) 6.2 8.7 H Lymph # (Auto) 1.5 1.6 Appling # (Auto) 0.7 0.7 Eos # (Auto) 0.0 0.0 Baso # (Auto) 0.0 0.0 Immature Gran # (Auto) 0.05 H 0.05 H Absolute Nucleated RBC 0.00 0.00 Immature Gran % 1 H 0 Nucleated RBC % 0 0 Syphilis Serology Nonreactive Blood Type O Positive Antibody Screen NEGATIVE Blood Bank Wristband ID Yes Assessment & Plan Problem List (1) delivery delivered: Status: Acute Assessment and plan: 1. Continue routine /post-op care 2. Labs reviewed, cbc appropriate 3. Remove dressing/[place] 4. Encourage to ambulate, shower 5. Encourage PO intake, breast feeding (2) Genital herpes simplex virus (HSV) infection in mother affecting : Status: Acute (3) Grand multiparity with current : Status: Acute (4) Advanced maternal age (AMA) in : Status: Acute Time Spent With Patient Time: Total time spent is greater than 50% in coordination of care (as documented) at patient's floor/unit and/or counseling patient:
[2025-05-23] MEDS: DOCUSATE SOD 100 MG CAPSULE PO ×2 (08:52→21:30)
[2025-05-23 11:30] VITALS: BP 124/83; PULSE 75; RESP 17; TEMP 36.9; O2SAT 96
[2025-05-23 16:40] VITALS: BP 138/80; PULSE 89; RESP 18; TEMP 36.6; O2SAT 98
[2025-05-23 20:00] VITALS: BP 106/66; PULSE 65; RESP 16; TEMP 36.7; O2SAT 96
[2025-05-23] MEDS: IBUPROFEN TAB 400 MG TABLET 800 MG PO (22:25)
[2025-05-24] MEDS: HYDROcodone/APAP 5/325 TABLET 1 TAB PO ×2 (03:54→09:48)
[2025-05-24 04:00] VITALS: BP 108/71; PULSE 70; RESP 18; TEMP 36.4; O2SAT 98
[2025-05-24] MEDS: IBUPROFEN TAB 400 MG TABLET 800 MG PO (05:50)
[2025-05-24] MEDS: ACYCLOVIR 800 MG TABLET PO (05:50)
--- NOTE | 2025-05-24 08:29 | PD.LDPPPRG ---
Subjective Subjective Interval history: Delivery type: Patient doing well this morning. No acute complaints. Ambulating, tolerating p.o. and voiding without difficulty. HTN/Pre-Eclampsia screen: No chest pain, shortness of breath, headache, visual changes, epigastric or right upper quadrant pain. Breast-feeding, lochia diminishing. Bowel: Flatus+/ BM+ Exam Vital Signs Temp Pulse Resp BP Pulse Ox O2 Del Method 97.5 F 70 18 108/71 98 Room Air 05/24/25 04:00 05/24/25 04:00 05/24/25 04:00 05/24/25 04:00 05/24/25 04:00 05/24/25 04:00 Constitutional Constitutional: no acute distress Routine HEENT Exam Head: Present normocephalic and atraumatic Eye: Present EOMI and PERRL ENT: Present mucous membranes moist Routine Neck Exam Neck: Present supple and trachea midline Routine Respiratory Exam Respiratory: Present chest non-tender, lungs clear, normal breath sounds and no resp distress Routine Cardiovascular Exam Cardiovascular: Present RRR Routine Abdominal Exam Abdominal: Present soft and normoactive bowel sounds Routine Extremities Exam Extremities: Present full ROM Routine Skin Exam Skin: Present intact, dry and warm Routine Neurological Exam Neurological: Present alert, oriented X3 and CN II-XII intact Routine Psychiatric Exam Psychiatric: Present normal affect and normal thought process Objective Labs 05/23/25 04:40 Assessment & Plan Problem List (1) delivery delivered: Status: Acute Assessment and plan: PPD/POD#2 1. Continue routine care 2. Transition to PO meds. 3. Encourage to ambulate/ breast-feed 4. Anticipate discharge home today. (2) Genital herpes simplex virus (HSV) infection in mother affecting : Status: Acute (3) Grand multiparity with current : Status: Acute (4) Advanced maternal age (AMA) in : Status: Acute Time Spent With Patient Time: Total time spent is greater than 50% in coordination of care (as documented) at patient's floor/unit and/or counseling patient:
--- NOTE | 2025-05-24 08:30 | ESDS_ITS ---
DS: Providers Provider Date of admission: 05/22/25 16:42 Primary care physician: Physician No Primary/Family Admitting Provider: Josselin Gross MD Attending Provider on Admission: Chris Guzman MD Consults: 05/22/25 22:22 Referral Routine Comment: Attending Provider on DC: Chris Guzman MD Discharging Provider: Chris Guzman MD DS: Diagnosis Discharge Diagnosis (1) delivery delivered: Status: Acute (2) Genital herpes simplex virus (HSV) infection in mother affecting : Status: Acute (3) Grand multiparity with current : Status: Acute (4) Advanced maternal age (AMA) in : Status: Acute (5) Encounter for supervision of high risk in third trimester, antepartum: Status: Acute Problem List Completed Was Problem List Reviewed/Reconciled?: Yes Summary/Hosp Course Brief History: Leidy presents to triage for concern of left vulvar lesion. She notes having cervical exam in office yesterday and today feels a lesion on the vulva. She won ders if it could be from latex allergy. On further review, Dr. Vasquez diagnosed her with HSV last January after she sat on a hot tractor and then had a lesion on her vulva. She was prescribed acyclovir and then later acyclovir cream when she had what she believed was an ingrown hair, but worried it might be another HSV lesion. She was not started on valtrex or acyclovir at 36 weeks, because she did not mention it to her OB provider when she transferred care in 3rd trimester. She notes neither she nor her have oral HSV and has never had a genital lesion. She was scheduled for IOL tomorrow for AMA (age 44). Peripartum Data Delivery Method: Low Transverse Episiotomy Description: None Procedures: Procedures Operation Date: 05/22/25 20:30 Actual Procedure Side Surgeon p in OR Bilateral Josselin Gross MD Time Spent with Patient Time attestation: Total time spent providing and/or coordinating discharge services: Exam Vital Signs Temp Pulse Resp BP Pulse Ox O2 Del Method 97.5 F 70 18 108/71 98 Room Air 05/24/25 04:00 05/24/25 04:00 05/24/25 04:00 05/24/25 04:00 05/24/25 04:00 05/24/25 04:00 Discharge Plan Plan Patient Disposition: HOME (Self Care) Patient condition on transfer: Stable Prescriptions/Referrals Prescriptions/Med Rec: New hydrocodone-acetaminophen 5-325 mg Tablet 1 tab PO Q6H MDD 4 tablets PRN (Reason: Patient rated pain 7 to 8) 7 Days Qty: 15 0RF docusate sodium 100 mg Capsule 100 mg PO BID 10 Days Qty: 20 0RF ibuprofen 800 mg tablet 800 mg PO Q8HR 10 Days Qty: 30 0RF valacyclovir [Valtrex] 500 mg tablet 500 mg PO BID 7 Days Qty: 14 0RF Continued Classic 28 mg iron- 800 mcg tablet 0.126 - 28 tab PO DAILY 30 Days Qty: 60 2RF Referrals: Chris Guzman MD [Physician, PIT INSPECTOR] No Primary/Family,Physician [Primary Care Provider] Patient/Caregiver Discharge Instructions Discharge Activity: activity as tolerated and other Other Discharge Activity Instructions:: vaginal rest and no heavy lifting more than 10 pounds for 6 weeks, keep incision clean and dry- do not submerge. no driving while taking narcotic. Other Discharge Diet Instructions: regular diet Education Materials: C Section Dc Print Language: Romansh Activity Restrictions/Additional Instructions: follow up with RAMONE Sanders in 1 to 2 weeks for incision check, call clinic for appointment Stand Alone Forms: Wendi Award Info., Patient Portal Info Letter Discharge Order Discharge Orders: Discharge (Routine); Ordered 05/24/25 Ordered By: Chris Guzman Planned Discharge Date 05/24/25 (3) Grand multiparity with current Qualifiers: Trimester: third trimester Qualified Code(s): O09.43 - Supervision of pr egnancy with grand multiparity, third trimester
[2025-05-24 09:10] VITALS: BP 92/54; PULSE 104; RESP 16; TEMP 36.9; O2SAT 98
[2025-05-24] MEDS: DOCUSATE SOD 100 MG CAPSULE PO (09:21)
== END 2025-05-24 14:30 | disposition home or self-care (01) | DRG 540 ==
LOC: S4SX 20:07 → S4NX 20:23
PROVIDERS: Advanced Practice Midwife; Admitting Provider Obstetrics & Gynecology; Visit Provider Obstetrics & Gynecology
PROC: (CPT 59514; principal; 2025-05-22 20:45)
DX: O98.32 Other infections with a predominantly sexual mode of transmission complicating childbirth (principal); A60.04 Herpesviral vulvovaginitis; Z3A.39 39 weeks gestation of pregnancy; Z37.0 Single live birth; N83.8 Other noninflammatory disorders of ovary, fallopian tube and broad ligament; O34.83 Maternal care for other abnormalities of pelvic organs, third trimester
CPT/HCPCS: 36415; 59409; 76815; 85025; 86780; 86850; 86900; 86901; 94762; A4217; A4314; A4649; J0689; J1885; J2274; J2371; J2590; J2765; J3010; J3490; A9270; J2270